=== PATIENT | female | born 1950 | race Caucasian/White ===

== ENCOUNTER 2021-02-28 07:32 | Outpatient (CLI) | payer OTHER, SELFPAY ==
--- NOTE | ~2021-02-28 | US_ITS ---
EXAMINATION: US retroperitoneal duplex ltd DATE: 02/28/2021 08:18 INDICATION: Hypertension. Atherosclerosis of renal artery. TECHNIQUE: Multiple grayscale, color Doppler, and pulsed Doppler images of the kidneys and renal vira adam were obtained. COMPARISON: CT abdomen and pelvis 12/18/2017 FINDINGS: The aorta peak systolic velocity is 70 cm/s. The right renal artery peak systolic velocity is 131 cm/ s in the proximal segment, 65 cm/s in the mid segment, and 75 cm/s in the distal segment. The left re nal artery peak systolic velocity is 128 cm/s in the proximal segment, 87 cm/s in the mid segment, an d 51 cm/s in the distal segment. The kidneys are normal in size. There is a 1.1 cm cyst in right kidn ey. IMPRESSION: 1. No Doppler evidence of renal artery stenosis. Note that the prior CT similarly shows no significa nt renal artery stenosis. Reviewed, dictated and finalized at location A. IMPRESSION: 1. No Doppler evidence of renal artery stenosis. Note that the prior CT simila rly shows no significant renal artery stenosis.
== END 2021-02-28 07:33 | disposition home or self-care (01) ==
LOC: ANHIMG 07:36
PROVIDERS: PCP Internal Medicine; Visit Provider Nurse Practitioner
DX: I70.1 Atherosclerosis of renal artery (principal)
CPT/HCPCS: 93976

== ENCOUNTER 2021-12-13 13:38 | Outpatient (CLI) | payer OTHER, SELFPAY ==
--- NOTE | ~2021-12-13 | XR_ITS ---
XR hip LT min 2V DATE: 12/13/2021 14:13 INDICATION: Left hip pain, worsening. No injury. TECHNIQUE: AP and lateral views COMPARISON: 12/18/2017 CT abdomen pelvis FINDINGS: There is mild left hip osteoarthritis. No fracture or dislocation, avascular necrosis or joshua ne destruction is detected. The pubic symphysis and sacroiliac joints are intact. IMPRESSION: Mild left hip osteoarthritis Reviewed, dictated and finalized at location A.
--- NOTE | ~2021-12-13 | XR_ITS ---
XR shoulder RT min 2V DATE: 12/13/2021 14:13 INDICATION: Right shoulder pain, worsening. No injury. TECHNIQUE: 4 views COMPARISON: None FINDINGS: There is mild degenerative change at the right acromioclavicular joint. There is mild glenohumeral osteoarthritis. There is some calcification of the rotator cuff tendon near its insertion at the greater tuberosity. No fracture or dislocation, periosteal reaction or bone destruction of the right shoulder is noted. Degenerative change of the thoracic and cervical spine. IMPRESSION: Rotator cuff calcific tendinitis Mild degenerative change at the right acromioclavicular and glenohumeral joints Reviewed, dictated and finalized at location A.
== END 2021-12-13 13:39 | disposition home or self-care (01) ==
LOC: ANHIMG 13:48
PROVIDERS: PCP Internal Medicine; Visit Provider Nurse Practitioner
DX: M25.552 Pain in left hip (principal); M25.511 Pain in right shoulder; M16.12 Unilateral primary osteoarthritis, left hip; M65.811 Other synovitis and tenosynovitis, right shoulder
CPT/HCPCS: 73030; 73502

== ENCOUNTER 2022-02-18 15:54 | Outpatient (CLI) | payer OTHER, SELFPAY ==
--- NOTE | ~2022-02-18 | MM_ITS ---
EXAMINATION: MM screening arun BI w cailin HISTORY: Screening TECHNIQUE: Craniocaudal and mediolateral oblique 3-D tomosynthesis images were obtained and synthetic 2-D images were generated. CAD analysis was submitted and interpreted. COMPARISON: Comparison to multiple prior studies sequentially, with oldest reviewed study dated 03/07. BREAST PARENCHYMAL COMPOSITION: The breasts are heterogenously dense, which may obscure small masses FINDINGS: There is no evidence of suspicious mass, calcification, or architectural distortion to sugg est malignancy in either breast. There has been no suspicious interval change. IMPRESSION: 1. No mammographic evidence of malignancy. 2. Recommend routine screening mammography in one year. BI-RADS Category 1: Negative Reviewed, dictated and finalized at location A.
== END 2022-02-18 15:55 | disposition home or self-care (01) ==
PROVIDERS: PCP Internal Medicine; Visit Provider Nurse Practitioner
DX: Z12.31 Encounter for screening mammogram for malignant neoplasm of breast (principal)
CPT/HCPCS: 77063; 77067

== ENCOUNTER 2023-03-27 14:35 | Emergency (ER) | payer OTHER, SELFPAY ==
[2023-03-27 14:56] VITALS: BP 129/71; PULSE 75; RESP 18; TEMP 36.7; O2SAT 97
--- NOTE | 2023-03-27 15:18 | ED.GENADULT ---
HPI - General Adult General Chief complaint: Skin/Abscess/Foreign Body Stated complaint: RT Hand Wasp Sting Time Seen by Provider: 03/27/23 15:18 Source: patient, RN notes reviewed and old records reviewed Mode of arrival: ambulatory Limitations: no limitations History of Present Illness HPI narrative: 73-year-old female presents to the [facility] with complaints of being stung by a wasp to the right hand last night. Swelling is noted. No erythema. Has taken loratadine 1 time last night, applied transit along cream. Reports that it is swollen, itching. Related Data Home Medications Medication Instructions Recorded Confirmed carvedilol 25 mg tablet 12.5 mg PO Q12H 02/05/21 03/27/23 spironolactone 25 mg tablet 12.5 mg PO DAILY 02/05/21 03/27/23 multivitamin 1 tablet PO DAILY 08/11/22 03/27/23 atorvastatin 10 mg tablet 10 mg PO DAILY 02/10/23 03/27/23 coenzyme Q10 200 mg/gram oral 200 mg PO DAILY 02/10/23 03/27/23 powder (H2Q CoQ10) lactobacillus combination no.9 4 4,000 mmu cells PO DAILY 02/10/23 03/27/23 billion cell capsule (Adult 50 Plus Probiotic) Allergies Allergy/AdvReac Type Severity Reaction Status Date / Time amlodipine AdvReac Intermediate swelling Verified 03/27/23 15:01 hydrochlorothiazide AdvReac Mild throat Verified 03/27/23 15:01 irritation lisinopril AdvReac Mild throat Verified 03/27/23 15:01 irritation Review of Systems Review of Systems: All systems reviewed & are unremarkable except as noted in HPI and below Constitutional: Constitutional: Reports no additional constitutional complaints Eyes: Eyes: Reports no additional eye complaints ENT: Reports system reviewed and no additional complaints, except as documented Cardiovascular: Cardiovascular: Reports no additional cardiovascular complaints, Denies chest pain and Denies dyspnea Respiratory: Respiratory: Reports no additional respiratory complaints, Denies chest congestion, Denies cough and Denies dyspnea Gastrointestinal: Gastrointestinal: Reports no additional gastrointestinal complaints, Denies abdominal pain, Denies nausea and Denies vomiting Musculoskeletal: Musculoskeletal: Reports as per HPI Integumentary/Breasts: Skin/Breast: Reports as per HPI Neurologic: Reports system reviewed and no additional complaints, except as documented Psychiatric: Psychiatric: Reports no additional psychiatric complaints Allergic/Immunologic: Allergic/Immunologic: Reports no additional allergic/immunologic complaints [facility] Past Medical History Medical History Arthritis History of sciatica History of stress test (~2017) Hx of colonic polyps Hypertension Postmenopause Ruptured disc, cervical (~1985) Surgical History Surgical History H/O: hysterectomy (~1976) History of eye surgery July 2020 with correction in March 2021 Family History Family History Father Family history of diabetes mellitus in first degree relative Colon polyp Patient's father is Acute myocardial infarction Hypertension Heart disease Diabetes mellitus Mother Family history of Alzheimer's disease Sibling Hypertension Other Family history of allergic disorder Family history of cardiovascular disease Social History Social History Smoking status: Never smoker Second hand tobacco smoke exposure: No Alcohol intake: never Substance use: never Substance use type: does not use Lack of Transportation: No Lack of Food: Never True Current Housing: I Have Housing Concerned About Future Housing: No Difficulty Paying Gas/Electric Bills: No Difficulty Paying for Meds: No Currently Unemployed: No Education: Associate Degree Difficulty w/ Childcare or Family Care: No Comments At the t
== END 2023-03-27 15:30 | disposition home or self-care (01) ==
PROVIDERS: Emergency Provider Nurse Practitioner; PCP Internal Medicine
DX: T63.461A Toxic effect of venom of wasps, accidental (unintentional), initial encounter (principal); M19.90 Unspecified osteoarthritis, unspecified site
CPT/HCPCS: 99213; G0463

== ENCOUNTER 2023-07-06 14:42 | Outpatient (CLI) | payer OTHER, SELFPAY ==
--- NOTE | ~2023-07-06 | XR_ITS ---
EXAMINATION: XR lumbar spine 6V w bending DATE: 07/06/2023 15:02 INDICATION: Low back pain TECHNIQUE: Anteroposterior, lateral in neutral, flexion and extension, and bilateral oblique views of the lumbar spine, and cone-down lateral view of the lumbosacral junction were obtained. COMPARISON: None. FINDINGS: There are 5 mm of anterolisthesis of L4 on L5. No hypermobility is present with flexion and extension. There is severe loss of intervertebral disc space height at L5-S1. The lumbar vertebral b ronda heights are maintained. There is no fracture. There is severe facet joint osteoarthritis from L3- 4 through L5-S1. IMPRESSION: 1. Moderate lumbar spondylosis without acute findings. Reviewed, dictated and finalized at location B. SETTER AXMINSTER
== END 2023-07-06 14:43 | disposition home or self-care (01) ==
LOC: ANHIMG 14:44
PROVIDERS: PCP Internal Medicine; Visit Provider Physician Assistant
DX: M43.06 Spondylolysis, lumbar region (principal)
CPT/HCPCS: 72114

== ENCOUNTER 2024-08-25 09:46 | Outpatient (CLI) | payer OTHER, SELFPAY ==
--- NOTE | ~2024-08-25 | US_ITS ---
US renal BI 08/25/2024 10:00 Procedure: Realtime transabdominal ultrasound of the kidneys and bladder. Indication: Chronic kidney disease stage III Comparison: Ultrasound dated 02/28/2021 Findings: Renal echotexture is normal bilaterally without hydronephrosis, contour deforming mass or r enal calculus. There are right renal cyst largest measuring 1 cm. The right kidney measures 10.2 cm a nd left kidney measures 10 cm. Bladder within normal limits. Impression: 1: Unremarkable renal ultrasound. No stones, masses or hydronephrosis. Reviewed, dictated and finalized at location B. BOARD INSTRUCTOR Impression: 1: Unremarkable renal ultrasound. No stones, masses or hydronephrosis.
== END 2024-08-25 09:47 | disposition home or self-care (01) ==
LOC: GOSHIMG 09:47
PROVIDERS: PCP Internal Medicine; Visit Provider Internal Medicine Nephrology
DX: I12.9 Hypertensive chronic kidney disease with stage 1 through stage 4 chronic kidney disease, or unspecified chronic kidney disease (principal); N18.31 Chronic kidney disease, stage 3a
CPT/HCPCS: 76775

== ENCOUNTER 2024-10-11 09:40 | Outpatient (CLI) | payer OTHER, SELFPAY ==
--- NOTE | ~2024-10-11 | XR_ITS ---
XR chest 2V Ordering provider: Jose James DO History: 74 years Female with . RT CHEST PAIN WITH DEEP INSPIRATION . Comparison: April 25, 2019 FINDINGS: MEDIASTINUM: The cardiac silhouette is not enlarged. LUNGS: No infiltrates, effusions or pneumothorax. Underlying emphysematous changes. OTHER: No free air under the diaphragm. Degenerative changes of the spine. IMPRESSION: No acute cardiopulmonary pathology. Reviewed, dictated and finalized at location A.
--- OUTSIDE RECORDS SUMMARY | 2024-10-11 11:00 | XMS_ITS | Referral Summary ---
Author Organization [facility] [place] [address] [facility] [address] Address [address] [place] [address] Care Team Providers Care Broke Handler Name Role Phone Marvin No MD Primary Care Provider [phone] Encounters Date Type Department Care Team Description 08/04/2024 Telephone [facility] Medical [facility] Cardiology [address] [place] [address] Leigha Adrian NP 08/02/2024 Telephone [facility] Medical [facility] Cardiology [address] [place] [address] Yannick Collazo MD from Last 3 Months Allergies Active Allergy Reactions Criticality Noted Date Comments Amlodipine Edema Medium 04/14/2018 Hydrochlorothiazide Other (See comments) Medium 2017 Dehydration, bleeding Lisinopril Cough Medium 04/14/2018 Medications magnesium chloride 64 mg of elemental magnesium delayed release tabletIndications :hypomagnesemia Take 2 tablets (128 mg of elemental magnesium total) by mouth daily Active vit E-F-ukeybk-zinc-l utein 226-90-0.8-5 mg capsule Take by mouth Active atorvastatin (LIPITOR) 10 mg tablet TAKE 1 TABLET BY MOUTH EVERY DAY 90 tablet 3 4 Active carvediloL (COREG) 12.5 mg tablet TAKE 1 TABLET BY MOUTH TWICE A DAY WITH FOOD 180 tablet 2 5 Active spironolactone (ALDACTONE) 25 mg tabletIndications :Essential hypertension TAKE 1/2 TABLET BY MOUTH DAILY 45 tablet 5 Active Active Problems Problem Noted Date Diagnosed Date Left ventricular hypertrophy 08/09/2020 BLACK (dyspnea on exertion) 04/14/2018 Palpitations 03/09/2015 Overview (10/24/2016): Palpitations Hyperlipidemia LDL goal <70 03/09/2015 Overview (10/24/2016): HLD (hyperlipidemia) Hypertension 03/09/2015 Overview (10/24/2016): HTN (hypertension) Social History Tobacco Use Types Packs/Day Years Used Date Smoking Tobacco: Never Smokeless Tobacco: Never Tobacco Cessation:Counseling Given: Not Answered Alcohol Use Standard Drinks/Week Comments No 0 (1 standard drink = 0.6 oz pur e alcohol) Personal Safety Answer Date Recorded Getting School Help Needed Not on file 08/24 Comments Unknown Sex and Gender Information Value Date Recorded Sex Assigned at Not on file Legal Sex Female 6:53 AM CURB SUPERVISOR Gender Identity Female 08/17/2021 5:50 PM CURB SUPERVISOR Sexual Orientation Straight 08/17/2021 5: 50 PM CURB SUPERVISOR Last Filed Vital Signs Vital Sign Reading Time Taken Comments Blood Pressure 136/74 11/17/2023 1:48 PM CDT Pulse 69 11/17/2023 10:28 AM CDT Temperature - - Respiratory Rate 16 04/14/2018 2:06 PM CDT Oxygen Saturation 97% 11/17/2023 10:28 AM CDT Inhaled Oxygen Concentration - - Weight 71.2 kg (157 lb) 11/17/2023 10:28 AM CDT Height 170.2 cm (5' 7 ) 11/17/2023 10:28 AM CDT Body Mass Index 24.59 11/17/2023 10:28 AM CDT Plan of Treatment Not on file Procedures Procedure Name Priority Date/Time Associated Diagnosis Comments BASIC METABOLIC PANEL Routine 08/09/2024 11:52 AM CURB SUPERVISOR BLACK (dyspnea on exertion) BASIC METABOLIC PANEL Routine 08/03/2024 12:16 PM CURB SUPERVISOR Essential hypertension from Last 3 Months Results * (ABNORMAL) Basic metabolic panel (08/09/2024 11:52 AM CURB SUPERVISOR) Glucose 92 70 - 99 mg/dL [facility] - 01 BUN 26 8 - 27 mg/dL [facility] - 01 Creatinine, Serum 1.09(H) 0.57 - 1.00 mg/dL [facility] - 01 eGFR 53(L) >59 mL/min/1.7 3 [facility] - 01 BUN/creat ratio 24 12 - [facility] - 01 Sodium 140 134 - 144 mmol/L [facility] - 01 Potassium, sr 5.0 3.5 - 5.2 mmol/L [facility] - 01 Chloride 100 96 - 106 mmol/L [facility] - 01 CO2 24 20 - 29 mmol/L [facility] - 01 Calcium 10.5(H) 8.7 - 10.3 mg/dL [facility] - 01 Blood 08/09/2024 11:5 2 AM CURB SUPERVISOR 08/09/2024 Narrative [facility] - 08/10/2024 7:08 AM CURB SUPERVISOR Performed at: - [facility] [id number] Machine Shop Lead Man: Collin Gee PhD, Phone: [phone] us Leigha Adrian SENIOR JAVASCRIPT ENGINEER LAB BLOOD ORDERABLES Final Resul t [facility] - * (ABNORMAL) Basic metabolic panel (08/03/2024 12:16 PM CURB SUPERVISOR) Glucose 86 70 - 99 mg/dL [facility] - 01 BUN 22 8 - 27 mg/dL [facility] - 01 Creatinine, Serum 1.24(H) 0.57 - 1.00 mg/dL [facility] - 01 eGFR 45(L) >59 mL/min/1.7 3 [facility] - 01 BUN/creat ratio 18 12 - [facility] - 01 Sodium 140 134 - 144 mmol/L [facility] - 01 Potassium, sr 4.9 3.5 - 5.2 mmol/L [facility] - 01 Chloride 104 96 - 106 mmol/L [facility] - 01 CO2 23 20 - 29 mmol/L [facility] - 01 Calcium 9.5 8.7 - 10.3 mg/dL [facility] - 01 Blood 08/03/2024 12:1 6 PM CURB SUPERVISOR 08/03/2024 Narrative [facility] - 08/04/2024 8:14 AM CURB SUPERVISOR Performed at: - [facility] [address] [id number] Machine Shop Lead Man: Collin Gee PhD, Phone: [phone] us Yannick Collazo MD LAB BLOOD ORDERABLES Amanda hernandez Result [facility] - 01 from Last [address] [facility] Care Teams Broke Handler Relationship Specialty Start Date End Date Marvin No MD [address] [place] [id number] PCP - General Internal Medicine 09/01/22
--- OUTSIDE RECORDS SUMMARY | 2024-10-11 11:00 | XMS_ITS | Clinical Summary ---
Author Organization [facility] Address [address] [place] [address] Care Team Providers Care Frame Fixer Name Role Phone Jose James DO Primary Care Provider [phone] Allergies Active Allergy Reactions Criticality Noted Date Comments Lisinopril Other (see comment) 07/10/2023 Voice loss Medications No known medications Social History Tobacco Use Types Packs/Day Years Used Date Smoking Tobacco: Never Smokeless Tobacco: Never Tobacco Cessation:Counseling Given: Not Answered Alcohol Use Standard Drinks/Week Comments Not Currently 0 (1 standard drink = 0.6 oz pur e alcohol) Comments Unknown Sex and Gender Information Value Date Recorded Sex Assigned at Not on file Legal Sex Female 8:01 PM CDT Gender Identity Not on file Sexual Orientation Not on file Last Filed Vital Signs Vital Sign Reading Time Taken Comments Blood Pressure 174/93 07/10/2023 1:00 PM LEMON GROWER Pulse 74 07/10/2023 1:00 PM LEMON GROWER Temperature 36.4 C (97.6 F) 07/10/2023 1:00 PM LEMON GROWER Respiratory Rate 18 07/10/2023 1:00 PM LEMON GROWER Oxygen Saturation 95% 07/10/2023 1:00 PM LEMON GROWER Inhaled Oxygen Concentration - - Weight 71.9 kg (158 lb 8.2 oz) 07/10/2023 11:53 AM LEMON GROWER Height 170.2 cm (5' 7 ) 07/10/2023 11:53 AM LEMON GROWER Body Mass Index 24.83 07/10/2023 11:53 AM LEMON GROWER Plan of Treatment Health Maintenance Due Date Last Done Comments Hepatitis C 1966 DTaP, Tdap and Td Vaccines (1 - Tdap) 1969 Annual Medicare Wellness Visit 2013 Dexa Scan (General) 2013 Zoster Vaccines (2 of 3) 10/13/2016 08/18/2016 Pneumococcal Vaccine: 65+ Years (2 of 2 - PPSV23 or PCV20) 06/17/2017 06/17/2016 RSV Immunization or 60+ Years (1 - 1-dose 75+ series) 2023 COVID-19 Vaccine ( - season) 2024 03/29/2022, 10/17/2021, 04/13/2021, Additional history exists Influenza Adult (#1) 2024 05/26/2019, 04/28/2018, 06/17/2016 Meningococcal B Vaccine Aged Out No l onger eligible based on patient's age to complete this topic Meningococcal Vaccine Aged Out No adam tre eligible based on patient's age to complete this topic RSV Immunizations Under 20 Months Aged Out No longer eligible based on patient's age to complete this topic Insurance Care Teams Frame Fixer Relationship Specialty Start Date End Date Jose James DO [address] [address] PCP - General INTERNAL MEDICINE 05/12/22
--- OUTSIDE RECORDS SUMMARY | 2024-10-11 11:00 | XMS_ITS | Clinical Summary ---
Author Organization [facility] [place] [address] Address [address] [place] [address] Care Team Providers Care Stone Setter Apprentice Name Role Phone Marvin No MD Primary Care Provider [phone] Allergies Active Allergy Reactions Criticality Noted Date Comments Amlodipine Edema Medium 04/14/2018 Hydrochlorothiazide Other (See comments) Medium 2017 Dehydration, bleeding Lisinopril Cough Medium 04/14/2018 Medications magnesium chloride 64 mg of elemental magnesium delayed release tabletIndications :hypomagnesemia Take 2 tablets (128 mg of elemental magnesium total) by mouth daily Active vit H-K-harubw-zinc-l utein 226-90-0.8-5 mg capsule Take by mouth [...] (hyperlipidemia) Hypertension 03/09/2015 Overview (10/24/2016): HTN (hypertension) Encounters Date Type Department Care Team Description 08/04/2024 Telephone [facility] Cardiology [address] [place] [address] Leigha Adrian NP 08/02/2024 Telephone [facility] Medical [facility] Cardiology [address] [place] [address] Yannick Collazo MD from Last 3 Months Surgical History Surgery Date Site/Laterality Comments HYSTERECTOMY Medical History Medical History Date Comments Hypertension Hyperlipidemia Family History Medical History Relation Name Comments Coronary artery disease Father Kristin nary artery disease; Heart attack Father Myocardial infa rction; Hypertension Father Hypertension; Alzheimer's disease Mother Alzheime r's disease; Hypertension Sister Hypertension; Relation Name Status Comments Father (Age 84) Mother Sister Social History Tobacco Use Types Packs/Day Years [...] on file Legal Sex Female 6:53 AM PRODUCT TECHNICIAN Gender Identity Female 08/17/2021 5:50 PM PRODUCT TECHNICIAN Sexual Orientation Straight 08/17/2021 5: 50 PM PRODUCT TECHNICIAN Obstetrics History Last Filed Vital Signs Vital Sign Reading [...] 11/17/2023 10:28 AM CDT Plan of Treatment Health Maintenance Due Date Last Done Comments Depression Screening 1948 Fall Risk Assessment 1950 Hepatitis C Screening 1950 Osteoporosis Screening-Bone Density Scan 1948 DTaP/Tdap/Td Vaccine (1 - Tdap) 1959 Hepatitis B Screening 1966 Well Visit 65+ 2013 Zoster Vaccine (2 of 3) 10/13/2016 08/18/2016 Pneumococcal vaccine 65+ (2 of 2 - PPSV23) 06/17/2017 06/17/2016 Influenza Vaccine Completed 04/21/2024, , 04/28/2018, Additional history exists Procedures Procedure Name Priority Date/Time Associated Diagnosis Comments BASIC METABOLIC PANEL Routine 08/09/2024 11:52 AM PRODUCT TECHNICIAN BLACK (dyspnea on exertion) BASIC METABOLIC PANEL Routine 08/03/2024 12:16 PM PRODUCT TECHNICIAN Essential hypertension from Last 3 Months Results * (ABNORMAL) Basic metabolic panel (08/09/2024 11:52 AM PRODUCT TECHNICIAN) Glucose 92 70 - 99 mg/dL [facility] - 01 BUN 26 8 - 27 mg/dL [facility] - 01 Creatinine, Serum 1.09(H) 0.57 - 1.00 mg/dL [facility] - 01 eGFR 53(L) >59 mL/min/1.7 3 [facility] - 01 BUN/creat ratio 24 12 - 28 [facility] - 01 Sodium 140 134 - 144 mmol/L [facility] - 01 Potassium, sr 5.0 3.5 - 5.2 mmol/L [facility] - 01 Chloride 100 96 - 106 mmol/L [facility] - 01 CO2 24 20 - 29 mmol/L [facility] - 01 Calcium 10.5(H) 8.7 - 10.3 mg/dL [facility] - 01 Blood 08/09/2024 11:5 2 AM PRODUCT TECHNICIAN 08/09/2024 Narrative [facility] - 08/10/2024 7:08 AM PRODUCT TECHNICIAN Performed at: 01 - [facility] [id number] Systems Auditor: Collin Gee PhD, Phone: [phone] us Leigha Adrian MINERALOGY PROFESSOR LAB BLOOD ORDERABLES Final Resul t [facility] - 01 * (ABNORMAL) Basic metabolic panel (08/03/2024 12:16 PM PRODUCT TECHNICIAN) Glucose 86 70 - 99 mg/dL [facility] - 01 BUN 22 8 - 27 mg/dL [facility] - 01 Creatinine, Serum 1.24(H) 0.57 - 1.00 mg/dL [facility] - 01 eGFR 45(L) >59 mL/min/1.7 3 [facility] - 01 BUN/creat ratio 18 12 - 28 [facility] - 01 Sodium 140 134 - 144 mmol/L [facility] - 01 Potassium, sr 4.9 3.5 - 5.2 mmol/L [facility] - 01 Chloride 104 96 - 106 mmol/L [facility] - 01 CO2 23 20 - 29 mmol/L [facility] - 01 Calcium 9.5 8.7 - 10.3 mg/dL [facility] - 01 Blood 08/03/2024 12:1 6 PM PRODUCT TECHNICIAN 08/03/2024 Narrative [facility] - 08/04/2024 8:14 AM PRODUCT TECHNICIAN Performed at: 01 - [place] [address] Systems Auditor: Collin Gee PhD, Phone: [phone] Yannick Collazo MD LAB BLOOD ORDERABLES Amanda l Result [facility] - 01 from Last 3 Months Insurance [facility] Care Teams Stone Setter Apprentice Relationship Specialty Start Date End Date Marvin No MD [address] [facility] [address] [place] [address] PCP - General Internal Medicine 09/01/22
== END 2024-10-11 09:41 | disposition home or self-care (01) ==
PROVIDERS: PCP Internal Medicine; Visit Provider Internal Medicine
DX: R07.9 Chest pain, unspecified (principal)
CPT/HCPCS: 71046

== ENCOUNTER 2024-10-13 12:34 | Inpatient (IN) | payer OTHER, SELFPAY ==
--- NOTE | ~2024-10-13 | XR_ITS ---
XR chest 1V 10/13/2024 15:34 Indication: Right-sided chest pain Procedure: PA chest Comparison: Comparison to multiple prior studies sequentially, with oldest reviewed study dated 01/2019. Findings: Small right pleural effusion. Heart size normal. Left lung clear. No acute osseous abnormal ity. Impression: 1: Small right pleural effusion. Reviewed, dictated and finalized at location A. Impression: 1: Small right pleural effusion.
--- NOTE | ~2024-10-13 | CT_ITS ---
EXAMINATION: CTA chest PE abdomen pel DATE: 10/13/2024 15:30 INDICATION: Lower right thoracic and right upper quadrant abdominal pain. TECHNIQUE: Computed tomography (CT) pulmonary angiogram of the chest was performed with 100 mL Omnipa que-350 intravenous contrast. Additional 3D reconstructions utilizing coronal maximum intensity proje ction (MIP) were performed. CT of the abdomen and pelvis was performed with intravenous contrast util izing the same contrast bolus following a short delay. Automated exposure control and iterative recon struction technique were employed. The dose-length product was 494.06 mGy-cm. COMPARISON: CT abdomen dated 12/18/2017 FINDINGS: Chest: There are central pulmonary arterial filling defects in the apical segmental and posterior segmental pulmonary arteries of the right upper lobe, the latter appears occlusive. There is peripheral consoli dation groundglass opacity in the posterior segment of the right upper lobe which suggests secondary pulmonary infarct. Additional nonocclusive pulmonary arterial filling defect in the posterior segment al pulmonary artery of the right lower lobe. Small posterior layering right pleural effusion. Borderl ine heart size. No evident leftward bowing of the ventricular septum to suggest right heart strain. S mall amount of atherosclerotic coronary artery calcification. No pericardial effusion. Vascular is no rmal in caliber with no dissection. No pathologically enlarged thoracic lymphadenopathy. Mild to mode rate thoracic spondylosis with bridging osteophytes at multiple levels consistent with diffuse idiopa thic skeletal hyperostosis (DISH). Abdomen/pelvis: Liver, gallbladder, pancreas and bilateral adrenal glands are normal. Splenic calcifications consiste nt with old granulomatous disease. Bilateral low-attenuation renal cysts measuring up to 1.4 cm the r ight kidney. There are few sigmoid diverticula without adjacent from trace stranding to suggest diver ticulitis. Small bowel and appendix are normal. Bladder is normal. The uterus is not identified and h as likely been surgically resected. No free intraperitoneal gas or fluid. Severe spondylosis at the l umbosacral junction. IMPRESSION: 1. Pulmonary emboli in the right upper and lower lobes with associated pulmonary infarct in the poste rior segment of the right upper lobe. Dr. Hayden discussed these findings with Dr. Basurto at 3:50 PM. 2. No acute intra-abdominal/pelvic process. Reviewed, dictated and finalized at location B. IMPRESSION: 1. Pulmonary emboli in the right upper and lower lobes with associated pulmonar y infarct in the posterior segment of the right upper lobe. Dr. Hayden discus sed these findings with Dr. Basurto at 3:50 PM. 2. No acute intra-abdominal/pelvic process.
--- NOTE | ~2024-10-13 | US_ITS ---
EXAMINATION:US venous doppler LE BI INDICATION:Left lower extremity pain TECHNIQUE: Multiple grayscale, color flow and Doppler images of the right and left lower extremity de ep venous systems were obtained and reviewed. COMPARISON:No prior studies for comparison. FINDINGS: The common femoral, superficial femoral and popliteal veins demonstrate normal respiratory variation, augmentation and compressibility. Color flow is also seen within the posterior tibial, pe roneal, greater saphenous and profunda veins. IMPRESSION: 1: No lower extremity deep venous thrombosis. Reviewed, dictated and finalized at location A.
[2024-10-13 13:10] VITALS: BP 145/85; PULSE 80; RESP 18; TEMP 36.9; O2SAT 100
--- OUTSIDE RECORDS SUMMARY | 2024-10-13 13:17 | XMS_ITS | Clinical Summary ---
Author Organization [facility] [place] [address] Address [address] [place] [address] Care Team Providers Care Web Software Engineer Name Role Phone Marvin No MD Primary Care Provider [phone]- [phone] Allergies Active Allergy Reactions Criticality Noted Date Comments Amlodipine Edema Medium 04/14/2018 Hydrochlorothiazide Other (See comments) Medium 2017 Dehydration, bleeding Lisinopril Cough Medium 04/14/2018 Medications magnesium chloride 64 mg of elemental magnesium delayed release tabletIndications :hypomagnesemia Take 2 tablets (128 mg of elemental magnesium total) by mouth daily Active vit T-D-huqosm-zinc-l utein 226-90-0.8-5 mg capsule Take by mouth [...] Type Department Care Team Description 08/04/2024 Telephone [facility] Cardiology [address] [place] [address] Leigha Adrian NP 08/02/2024 Telephone [facility] Cardiology [address] [place] [address] Yannick Collazo MD from Last [...] on file Legal Sex Female 6:53 AM CAUL PULLER Gender Identity Female 08/17/2021 5:50 PM CAUL PULLER Sexual Orientation Straight 08/17/2021 5: 50 PM CAUL PULLER Obstetrics History Last Filed Vital Signs Vital [...] BASIC METABOLIC PANEL Routine 08/09/2024 11:52 AM CAUL PULLER BLACK (dyspnea on exertion) BASIC METABOLIC PANEL Routine 08/03/2024 12:16 PM CAUL PULLER Essential hypertension from Last 3 Months Results * (ABNORMAL) Basic metabolic panel (08/09/2024 11:52 AM CAUL PULLER) Glucose 92 70 - 99 mg/dL [facility] [...] - 01 Blood 08/09/2024 11:5 2 AM CAUL PULLER 08/09/2024 Narrative [facility] - 08/10/2024 7:08 AM CAUL PULLER Performed at: 01 - [facility] [id number] Canine Service Instructor Trainer: Collin Gee PhD, Phone: [phone] us Leigha Adrian [employer] LAB BLOOD ORDERABLES Final Resul t [facility] - 01 * (ABNORMAL) Basic metabolic panel (08/03/2024 12:16 PM CAUL PULLER) Glucose 86 70 - 99 mg/dL [facility] [...] - 01 Blood 08/03/2024 12:1 6 PM CAUL PULLER 08/03/2024 Narrative [facility] - 08/04/2024 8:14 AM CAUL PULLER Performed at: 01 - [place] [address] Canine Service Instructor Trainer: Collin Gee PhD, Phone: [phone] Yannick Collazo MD LAB BLOOD ORDERABLES Amanda l Result [facility] - 01 from Last 3 Months Insurance [facility] Care Teams Web Software Engineer Relationship Specialty Start Date End Date Marvin No MD [address] [facility] [address] [place] [address] PCP - General Internal Medicine 09/01/22
--- OUTSIDE RECORDS SUMMARY | 2024-10-13 13:18 | XMS_ITS | Clinical Summary ---
Author Organization [facility] Address [address] [place] [address] Care Team Providers Care Helicopter Officer Name Role Phone Jose James DO Primary Care Provider [phone] Allergies Active Allergy Reactions Criticality Noted Date [...] Comments Blood Pressure 174/93 07/10/2023 1:00 PM OPTIMIZATION ANALYST Pulse 74 07/10/2023 1:00 PM OPTIMIZATION ANALYST Temperature 36.4 C (97.6 F) 07/10/2023 1:00 PM OPTIMIZATION ANALYST Respiratory Rate 18 07/10/2023 1:00 PM OPTIMIZATION ANALYST Oxygen Saturation 95% 07/10/2023 1:00 PM OPTIMIZATION ANALYST Inhaled Oxygen Concentration - - Weight 71.9 kg (158 lb 8.2 oz) 07/10/2023 11:53 AM OPTIMIZATION ANALYST Height 170.2 cm (5' 7 ) 07/10/2023 11:53 AM OPTIMIZATION ANALYST Body Mass Index 24.83 07/10/2023 11:53 AM OPTIMIZATION ANALYST Plan of Treatment Health Maintenance Due Date [...] to complete this topic Insurance Care Teams Helicopter Officer Relationship Specialty Start Date End Date Jose James DO [address] [address] PCP - General INTERNAL MEDICINE 05/12/22
--- OUTSIDE RECORDS SUMMARY | 2024-10-13 13:18 | XMS_ITS | Referral Summary ---
Author Organization [facility] [place] [address] [facility] [address] Address [address] [place] [address] Care Team Providers Care City Dispatcher Name Role Phone Marvin No MD Primary Care Provider [phone] Encounters Date Type Department Care Team Description 08/04/2024 Telephone [facility] Medical Group Cardiology [address] [place] [address] Leigha Adrian NP 08/02/2024 Telephone [facility] Medical [facility] Cardiology [address] [place] [address] Yannick Collazo MD from Last 3 Months Allergies Active Allergy Reactions Criticality Noted Date Comments Amlodipine Edema Medium 04/14/2018 Hydrochlorothiazide Other (See comments) Medium 2017 Dehydration, bleeding Lisinopril Cough Medium 04/14/2018 Medications magnesium chloride 64 mg of elemental magnesium delayed release tabletIndications :hypomagnesemia Take 2 tablets (128 mg of elemental magnesium total) by mouth daily Active vit T-C-yhbyqx-zinc-l utein 226-90-0.8-5 mg capsule Take by mouth [...] on file Legal Sex Female 6:53 AM SQL ENGINEER Gender Identity Female 08/17/2021 5:50 PM SQL ENGINEER Sexual Orientation Straight 08/17/2021 5: 50 PM SQL ENGINEER Last Filed Vital Signs Vital Sign Reading [...] BASIC METABOLIC PANEL Routine 08/09/2024 11:52 AM SQL ENGINEER BLACK (dyspnea on exertion) BASIC METABOLIC PANEL Routine 08/03/2024 12:16 PM SQL ENGINEER Essential hypertension from Last 3 Months Results * (ABNORMAL) Basic metabolic panel (08/09/2024 11:52 AM SQL ENGINEER) Glucose 92 70 - 99 mg/dL [facility] [...] - 01 Blood 08/09/2024 11:5 2 AM SQL ENGINEER 08/09/2024 Narrative [facility] - 08/10/2024 7:08 AM SQL ENGINEER Performed at: - [facility] [id number] Front Office Coordinator: Collin Gee PhD, Phone: [phone] us Leigha Adrian LOAN WORKOUT OFFICER LAB BLOOD ORDERABLES Final Resul t [facility] - * (ABNORMAL) Basic metabolic panel (08/03/2024 12:16 PM SQL ENGINEER) Glucose 86 70 - 99 mg/dL [facility] [...] - 01 Blood 08/03/2024 12:1 6 PM SQL ENGINEER 08/03/2024 Narrative [facility] - 08/04/2024 8:14 AM SQL ENGINEER Performed at: - [facility] [address] [id number] Front Office Coordinator: Collin Gee PhD, Phone: [phone] us Yannick Collazo MD LAB BLOOD ORDERABLES Amanda henrandez Result [facility] - 01 from Last 3 Months Insurance [facility] Care Teams City Dispatcher Relationship Specialty Start Date End Date Marvin No MD [address] [place] [address] PCP - General Internal Medicine 09/01/22
[2024-10-13 13:58] VITALS: RESP 18; O2SAT 100
--- NOTE | 2024-10-13 13:58 | ECG_ITS ---
Test Date: 2024-10-13 15:21:59 Measurements Intervals [place] Rate: 74 P: 65 CA: 194 QRS: 22 QRSD: 109 T: 76 QT: 366 QTc: 408 Interpretive Statements SINUS RHYTHM POSSIBLE LEFT ATRIAL ENLARGEMENT [-0.1mV P-WAVE IN V1/V2] POSSIBLE ANTERIOR MYOCARDIAL INFARCTION , OF INDETERMINATE AGE [30 ms Q WAVE IN V3/V4, OR R < 0.2 mV IN V4] No previous ECG available for comparison Electronically Signed On 10-14-2024 10:37:03 CDT by Mary Stoner M.D.
[2024-10-13 14:39] LABS: Add Urine Microscopic? NO; Appearance Urine Clear (Clear); Bilirubin Urine Negative (Negative); Blood Urine Negative (Negative); Color Urine Yellow (Yellow); Glucose Urine UA Negative (Negative); Ketones Urine Negative (Negative); Leukocyte Esterase Ur Negative LEU/UL (Negative); Nitrate Urine Negative (Negative); Protein Urine Negative (Negative); Specific Grav Ur 1.022 (1.001-1.035); Urobilinogen Urine 0.2 mg/dL (<2.0); pH Urine 5.5 (5.0-9.0)
[2024-10-13 14:46] LABS: Lactic Acid Reflex 1.5 mmol/L (0.7-2.0)
[2024-10-13 14:47] LABS: Alanine Aminotransferase 27 U/L (6-35); Alkaline Phosphatase 77 U/L (38-126); Anion Gap 12 mmol/L (4-12); Aspartate Amino Transferase 31 U/L (14-36); Bilirubin,Total 0.5 mg/dL (0.2-1.3); Blood Urea Nitrogen 26 mg/dL (7-17); Calcium 10.4 mg/dL (8.4-10.2); Carbon Dioxide 28 mmol/L (22-30); Chloride 98 mmol/L (98-107); Estimated CRCL calculation 35 ml/min; Estimated Glomerular Filt Rate 44; Glucose 140 mg/dL (65-110); Lipase 66 U/L (23-300); Potassium 4.7 mmol/L (3.4-5.0); Sodium 138 mmol/L (137-145)
--- OUTSIDE RECORDS SUMMARY | 2024-10-13 14:54 | XMS_ITS | Clinical Summary ---
Author Organization [facility] [place] [address] Address [address] [place] [address] Care Team Providers Care Cemetery Laborer Name Role Phone Marvin No MD Primary Care Provider [phone] Allergies Active Allergy Reactions Criticality Noted Date Comments Amlodipine Edema Medium 04/14/2018 Hydrochlorothiazide Other (See comments) Medium 2017 Dehydration, bleeding Lisinopril Cough Medium 04/14/2018 Medications magnesium chloride 64 mg of elemental magnesium delayed release tabletIndications :hypomagnesemia Take 2 tablets (128 mg of elemental magnesium total) by mouth daily Active vit O-W-eizvep-zinc-l utein 226-90-0.8-5 mg capsule Take by mouth [...] Type Department Care Team Description 08/04/2024 Telephone [facility] Medical Group Cardiology [address] [place] [address] Leigha Adrian NP 08/02/2024 Telephone [facility] Medical Group Cardiology [address] [place] [address] Yannick Collazo MD from Last [...] on file Legal Sex Female 6:53 AM SPRAY BLENDER Gender Identity Female 08/17/2021 5:50 PM SPRAY BLENDER Sexual Orientation Straight 08/17/2021 5: 50 PM SPRAY BLENDER Obstetrics History Last Filed Vital Signs Vital [...] BASIC METABOLIC PANEL Routine 08/09/2024 11:52 AM SPRAY BLENDER BLACK (dyspnea on exertion) BASIC METABOLIC PANEL Routine 08/03/2024 12:16 PM SPRAY BLENDER Essential hypertension from Last 3 Months Results * (ABNORMAL) Basic metabolic panel (08/09/2024 11:52 AM SPRAY BLENDER) Glucose 92 70 - 99 mg/dL [facility] [...] - 01 Blood 08/09/2024 11:5 2 AM SPRAY BLENDER 08/09/2024 Narrative [facility] - 08/10/2024 7:08 AM SPRAY BLENDER Performed at: 01 - [facility] [id number] Assembly Stock Supervisor: Collin Gee PhD, Phone: [phone] us Leigha Adrian CLINICAL DATA ANALYST LAB BLOOD ORDERABLES Final Resul t [facility] - 01 * (ABNORMAL) Basic metabolic panel (08/03/2024 12:16 PM SPRAY BLENDER) Glucose 86 70 - 99 mg/dL [facility] [...] - 01 Blood 08/03/2024 12:1 6 PM SPRAY BLENDER 08/03/2024 Narrative [facility] - 08/04/2024 8:14 AM SPRAY BLENDER Performed at: 01 - [place] [address] Assembly Stock Supervisor: Collin Gee PhD, Phone: [phone] Yannick Collazo MD LAB BLOOD ORDERABLES Amanda l Result [facility] - 01 from Last 3 Months Insurance [facility] Care Teams Cemetery Laborer Relationship Specialty Start Date End Date Marvin No MD [address] [facility] [address] [place] [address] PCP - General Internal Medicine 09/01/22
--- OUTSIDE RECORDS SUMMARY | 2024-10-13 14:54 | XMS_ITS | Clinical Summary ---
Author Organization [facility] Address [address] [place] [address] Care Team Providers Care Meteorology Instructor Name Role Phone Jose James DO Primary Care Provider [phone] Allergies Active Allergy Reactions Criticality Noted Date [...] Comments Blood Pressure 174/93 07/10/2023 1:00 PM STRATEGIC PLANNER Pulse 74 07/10/2023 1:00 PM STRATEGIC PLANNER Temperature 36.4 C (97.6 F) 07/10/2023 1:00 PM STRATEGIC PLANNER Respiratory Rate 18 07/10/2023 1:00 PM STRATEGIC PLANNER Oxygen Saturation 95% 07/10/2023 1:00 PM STRATEGIC PLANNER Inhaled Oxygen Concentration - - Weight 71.9 kg (158 lb 8.2 oz) 07/10/2023 11:53 AM STRATEGIC PLANNER Height 170.2 cm (5' 7 ) 07/10/2023 11:53 AM STRATEGIC PLANNER Body Mass Index 24.83 07/10/2023 11:53 AM STRATEGIC PLANNER Plan of Treatment Health Maintenance Due Date [...] to complete this topic Insurance Care Teams Meteorology Instructor Relationship Specialty Start Date End Date Jose James DO [address] [address] PCP - General INTERNAL MEDICINE 05/12/22
--- OUTSIDE RECORDS SUMMARY | 2024-10-13 14:54 | XMS_ITS | Referral Summary ---
Author Organization [facility] [place] [facility] [address] [facility] 162 Address [address] [place] [address] Care Team Providers Care Custom Feed Mill Operator Helper Name Role Phone Marvin No MD Primary Care Provider [phone] Encounters Date Type Department Care Team Description 08/04/2024 Telephone [facility] Medical Group Cardiology [address] [place] [address] Leigha Adrian NP 08/02/2024 Telephone [facility] Medical [facility] Cardiology [address] [place] [address] Yannick Collazo MD from Last 3 Months Allergies Active Allergy Reactions Criticality Noted Date Comments Amlodipine Edema Medium 04/14/2018 Hydrochlorothiazide Other (See comments) Medium 2017 Dehydration, bleeding Lisinopril Cough Medium 04/14/2018 Medications magnesium chloride 64 mg of elemental magnesium delayed release tabletIndications :hypomagnesemia Take 2 tablets (128 mg of elemental magnesium total) by mouth daily Active vit X-O-rjqxol-zinc-l utein 226-90-0.8-5 mg capsule Take by mouth [...] on file Legal Sex Female 6:53 AM LOCKET MAKER Gender Identity Female 08/17/2021 5:50 PM LOCKET MAKER Sexual Orientation Straight 08/17/2021 5: 50 PM LOCKET MAKER Last Filed Vital Signs Vital Sign Reading [...] BASIC METABOLIC PANEL Routine 08/09/2024 11:52 AM LOCKET MAKER BLACK (dyspnea on exertion) BASIC METABOLIC PANEL Routine 08/03/2024 12:16 PM LOCKET MAKER Essential hypertension from Last 3 Months Results * (ABNORMAL) Basic metabolic panel (08/09/2024 11:52 AM LOCKET MAKER) Glucose 92 70 - 99 mg/dL [facility] [...] - 01 Blood 08/09/2024 11:5 2 AM LOCKET MAKER 08/09/2024 Narrative [facility] - 08/10/2024 7:08 AM LOCKET MAKER Performed at: - [facility] [id number] Mri Technologist: Collin Gee PhD, Phone: [phone] us Leigha Adrian TRAVEL COUNSELOR LAB BLOOD ORDERABLES Final Resul t [facility] - * (ABNORMAL) Basic metabolic panel (08/03/2024 12:16 PM LOCKET MAKER) Glucose 86 70 - 99 mg/dL [facility] [...] - 01 Blood 08/03/2024 12:1 6 PM LOCKET MAKER 08/03/2024 Narrative [facility] - 08/04/2024 8:14 AM LOCKET MAKER Performed at: - [facility] [address] [id number] Mri Technologist: Collin Gee PhD, Phone: [phone] us Yannick Collazo MD LAB BLOOD ORDERABLES Amanda hernandez Result [facility] - 01 from Last 3 Months Insurance [facility] Care Teams Custom Feed Mill Operator Helper Relationship Specialty Start Date End Date Marvin No MD [address] [place] [address] PCP - General Internal Medicine 09/01/22
[2024-10-13 14:59] LABS: Troponin I < 0.012 ng/mL (0.000-0.034)
[2024-10-13 15:04] LABS: Basophils Percent Auto 0.4 % (0.2-1.2); Eosinophils Absolute Auto 0.1 K/mm3 (0-0.3); Eosinophils Percent Auto 1.1 % (0-4.4); Hematocrit 42.6 % (37.0-47.0); Immature Granulocyte Absolute 0.02 K/mm3 (0.00-0.031); Immature Granulocyte Percent A 0.2 % (0-0.5); Lymphocytes Absolute Auto 1.35 K/mm3 (0.9-3.2); Lymphocytes Percent Auto 15.2 % (18.3-44.2); Mean Corpuscular HGB Conc 32.9 g/dl (32-36); Mean Corpuscular Hemoglobin 29.5 pg (26-34); Mean Corpuscular Volume 89.7 fl (80-100); Mean Platelet Volume 9.8 fl (7.4-10.4); Monocytes Absolute Auto 0.9 K/mm3 (0.1-0.6); Monocytes Percent Auto 9.9 % (2.6-8.5); Neutrophils Absolute Auto 6.5 K/mm3 (1.3-6.7); Neutrophils Percent Auto 73.2 % (45.5-73.1); Platelet Count Result 214 k/mm3 (150-375); Red Blood Count 4.75 M/mm3 (4.2-5.4); Red Cell Distribution Width 12.3 % (11.5-14.5); White Blood Count 8.9 K/mm3 (4.5-10.0)
[2024-10-13 15:14] LABS: Prothrombin Time 13.6 Seconds (11.1-14.7)
[2024-10-13 15:15] LABS: Partial Thromboplastin Time 29.2 Seconds (22.3-36.8)
--- NOTE | 2024-10-13 15:25 | PC.NURSE ---
pt to CT will start IV fluids as soon as pt returns to room. Pt needed IV and it took a couple attempts.
[2024-10-13] MEDS: SODIUM CHLORIDE 0.9% IV 2,000 ML 999 ML IV CONT (15:54)
[2024-10-13] MEDS: APIXABAN 5 MG TABLET 10 MG PO (16:23)
--- NOTE | 2024-10-13 16:26 | ED.GENADULT ---
HPI - General Adult General Chief complaint: Unspecified Stated complaint: right rib pain Time Seen by Provider: 10/13/24 13:23 History of Present Illness HPI narrative: This is a 74-year-old female presenting with right-sided chest pain x3 days.. Patient has been having a sharp pain in the right side of her chest that radiates to her back. She also has an achy pain throughout her back. Pain is worse with deep breaths and movement. She feels winded. She denies lower extremity edema, fevers productive cough, history of blood clots/DVT. She did recently travel from [place] and the drive to them over 3 days. Related Data Home Medications ?Medication ?Instructions ?Recorded ?Confirmed ?Last Taken ?Type carvedilol 25 mg tablet 12.5 mg PO Q12H 02/05/21 10/07/24 Unknown History atorvastatin 10 mg tablet 10 mg PO DAILY 02/10/23 10/07/24 Unknown History coenzyme Q10 200 mg/gram oral 200 mg PO DAILY 02/10/23 10/07/24 Unknown History powder (H2Q CoQ10) acetaminophen 500 mg tablet 500 mg PO Q6H PRN 08/16/24 10/07/24 Unknown History (Tylenol Extra Strength) omega-3 fatty acids 1,000 mg 1,000 mg PO DAILY 08/16/24 10/07/24 Unknown History capsule (Super Bear-3) spironolactone 25 mg tablet 12.5 mg PO BID 08/16/24 10/07/24 Unknown History Allergies Allergy/AdvReac Type Severity Reaction Status Date / Time amlodipine AdvReac Intermediate swelling Verified 10/07/24 13:18 hydrochlorothiazide AdvReac Mild throat Verified 10/07/24 13:18 irritation lisinopril AdvReac Mild throat Verified 10/07/24 13:18 irritation PMFSH Past Medical History Medical History Hypertension Arthritis History of stress test (~2017) History of sciatica Ruptured disc, cervical (~1985) Hx of colonic polyps Postmenopause Surgical History Surgical History H/O: hysterectomy (~1976) History of eye surgery July 2020 with correction in March 2021 Family History Family History Father Family history of diabetes mellitus in first degree relative Colon polyp Patient's father is Acute myocardial infarction Hypertension Heart disease Diabetes mellitus Mother Family history of Alzheimer's disease Sibling Hypertension Other Family history of allergic disorder Family history of cardiovascular disease Social History Social History Smoking status: Never smoker Second hand tobacco smoke exposure: No Alcohol intake: never Substance use: never Substance use type: does not use Lack of Transportation: No Lack of Food: Never True Current Housing: I Have Housing Concerned About Future Housing: No Difficulty Paying Gas/Electric Bills: No Difficulty Paying for Meds: No Currently Unemployed: No Education: Associate Degree Difficulty w/ Childcare or Family Care: No Exam Narrative: APPEARANCE: No apparent distress. Head: atraumatic. EYES: EOMI, NOSE: Atraumatic NECK: Trachea midline RESPIRATORY: Tachypneic, 4-5 word dyspnea, 100% on room air CARDIOVASCULAR: RRR, swollen left calf greater than the right ABDOMINAL: Non-distended MUSCULOSKELETAl: No obvious deformities NEURO: Alert. Moving 4/4 extremities SKIN:: Warm, dry. Normal color PSYCHIATRIC: Normal affect Course Vital Signs Vital signs: Vital Signs Temperature 98.4 F 10/13/24 13:10 Pulse Rate 80 10/13/24 13:10 Respiratory Rate 18 10/13/24 13:10 Blood Pressure 145/85 H 10/13/24 13:10 Pulse Oximetry 100 10/13/24 13:10 Oxygen Delivery Room Air 10/13/24 13:10 Temperature 98.4 F 10/13/24 13:10 Pulse Rate 80 10/13/24 13:10 Respiratory Rate 18 10/13/24 13:58 Blood Pressure 145/85 H 10/13/24 13:10 Pulse Oximetry 100 10/13/24 13:58 Oxygen Delivery Room Air 10/13/24 13:10 Medical Decision Making MDM Narrative Medical decision making narrative: -Course: 74-year-old female presenting with right-sided chest pain in the setting of recent travel. CT PE showed right-sided multi segment pulmonary embolism with pulmonary infarct. Otherwise patient is hemodynamically stable. She will be started on Eliquis. Venous ultrasound ordered for stratification purposes. Patient will be placed in observation overnight. -DDX includes but is not limited to: PE, pneumonia, viral syndrome, gallbladder disease -Independent interpretation of studies: Labs imaging/reviewed -Discussion of Management/Consultants: Anat -Interventions:Terry -Shared decision making / Disposition: observation Vital Signs Vital Signs: Vital Signs Temperature 98.4 F 10/13/24 13:10 Pulse Rate 80 10/13/24 13:10 Respiratory Rate 18 10/13/24 13:10 Blood Pressure 145/85 H 10/13/24 13:10 Pulse Oximetry 100 10/13/24 13:10 Oxygen Delivery Room Air 10/13/24 13:10 Temperature 98.4 F 10/13/24 13:10 Pulse Rate 80 10/13/24 13:10 Respiratory Rate 18 10/13/24 13:58 Blood Pressure 145/85 H 10/13/24 13:10 Pulse Oximetry 100 10/13/24 13:58 Oxygen Delivery Room Air 10/13/24 13:10 Lab Data 10/13/24 14:56 10/13/24 14:29 Labs: Lab Results 10/13/24 10/13/24 10/13/24 Range/Units 14:29 14:50 14:56 WBC 8.9 (4.5-10.0) K/mm3 RBC 4.75 (4.2-5.4) M/mm3 Hgb 14.0 (12.0-15.0) g/dL Hct 42.6 (37.0-47.0) % MCV 89.7 (80-100) fl MCH 29.5 (26-34) pg MCHC 32.9 (32-36) g/dl RDW 12.3 (11.5-14.5) % Plt Count 214 (150-375) k/mm3 MPV 9.8 (7.4-10.4) fl Immature Gran % (Auto) 0.2 (0-0.5) % Neut % (Auto) 73.2 H (45.5-73.1) % Lymph % (Auto) 15.2 L (18.3-44.2) % Wallace % (Auto) 9.9 H (2.6-8.5) % Eos % (Auto) 1.1 (0-4.4) % Baso % (Auto) 0.4 (0.2-1.2) % Lymph # (Auto) 1.35 (0.9-3.2) K/mm3 Wallace # (Auto) 0.9 H (0.1-0.6) K/mm3 Eos # (Auto) 0.1 (0-0.3) K/mm3 Baso # (Auto) 0.0 (0.0-0.1) K/mm3 Abs Immat Gran (auto) 0.02 (0.00-0.031) K/mm3 Absolute Neuts (auto) 6.5 (1.3-6.7) K/mm3 Absolute Nucleated RBC 0.000 (0.0-0.012) K/mm3 Nucleated RBC % 0.0 (0.0-0.2) % PT 13.6 (11.1-14.7) Seconds INR 1.0 APTT 29.2 (22.3-36.8) Seconds Sodium 138 (137-145) mmol/L Potassium 4.7 (3.4-5.0) mmol/L Chloride 98 (98-107) mmol/L Carbon Dioxide 28 (22-30) mmol/L Anion Gap 12 (4-12) mmol/L BUN 26 H (7-17) mg/dL Creatinine 1.20 H (0.7-1.0) mg/dL Estim Creat Clear Calc 35 ml/min Estimated GFR 44 L (59 - ) Glucose 140 H (65-110) mg/dL Lactic Acid 1.5 (0.7-2.0) mmol/L Calcium 10.4 H (8.4-10.2) mg/dL Magnesium 2.0 (1.6-2.3) mg/dL Total Bilirubin 0.5 (0.2-1.3) mg/dL AST 31 (14-36) U/L ALT 27 (6-35) U/L Alkaline Phosphatase 77 (38-126) U/L Troponin I < 0.012 (0.000-0.034) ng/mL Total Protein 9.0 H (6.3-8.2) g/dL Albumin 5.0 (3.5-5.1) g/dL Lipase 66 (23-300) U/L Urine Color Yellow (Yellow) Urine Appearance Clear (Clear) Urine pH 5.5 (5.0-9.0) Ur Specific [place] 1.022 (1.001-1.035) Urine Protein Negative (Negative) mg/dL Urine Glucose (UA) Negative (Negative) mg/dL Urine Ketones Negative (Negative) mg/dL Ur Blood (Man) Negative (Negative) Urine Nitrate Negative (Negative) Urine Bilirubin Negative (Negative) Urine Urobilinogen 0.2 (<2.0) mg/dL Leukocyte Esterase Rfl Negative (Negative) FRANCISCO/UL Discharge Plan Discharge Clinical Impression: Pulmonary embolism Patient Disposition: Home, Self-Care Condition: Stable Instructions: Antibiotic Form Patient Language: Icelandic Prescriptions: No Action carvedilol 25 mg tablet 12.5 mg PO Q12H Rx Instructions: must administer with a meal/food spironolactone 25 mg tablet 12.5 mg PO BID Rx Instructions: take 1/2 of tablet daily H2Q CoQ10 200 mg/gram powder 200 mg PO DAILY atorvastatin 10 mg tablet 10 mg PO DAILY omega-3 fatty acids [Super Bear-3] 1,000 mg capsule 1,000 mg PO DAILY acetaminophen [Tylenol Extra Strength] 500 mg tablet 500 mg PO Q6H PRN cyclobenzaprine 10 mg tablet 10 mg PO TID PRN (Reason: muscle spasm) Qty: 30 0RF Rx Instructions: Do not drive or operate heavy machinery while on med Follow-up/Referrals: Jose James DO [Primary Care Provider] -
[2024-10-13 17:35] VITALS: BMI 25.1; BMI 25.7
[2024-10-13 17:52] LABS: Troponin I < 0.012 ng/mL (0.000-0.034)
--- NOTE | 2024-10-13 17:58 | ADMGEN ---
This patient, Edna Lynn, was admitted to Medical Room 343-01. Patient/family oriented to hospital policies and general routines including ID bracelet, bed and alarms, visiting hours, pain management, procedures, bathroom and other care routines, personal items, smoking policy, room service/diet, and visiting hours. Information on how to activate the Rapid Response Team has been discussed. Patient/Family are encouraged to report perceived risks to care and to ask questions if they do not understand what they are told or what they should do.
--- NOTE | 2024-10-13 18:15 | P.HP_ITS ---
H&P: HPI History of Present Illness Date/Time: 10/13/24 18:15 Chief Complaint: Chest Wall Pain Narrative: 74 y/o F with PMH of hypertension presents here with chest wall pain. The patient presents here from home for further evaluation of right-sided rib/chest wall pain and soreness. She reports onset on Thursday, 10/10. She reports the pain worsens with coughing, deep inspiration, and movement. She describes it as sharp, right-sided, with radiation into her upper back. Pain is accompanied by mild shortness of breath and a dry cough that has slightly increased lately. She denies accompanying dizziness, presyncope, syncope, hemoptysis, fever, chills, body aches, midsternal chest pain, lower extremity edema. Of note, the patient did have extended travel via car over the last 3 days. She recently traveled back from [place] on 09/20/19, travel took 2.5 days. She denies any history of DVT or pulmonary embolism. She is not on chronic anticoagulation. Initial VS at presentation: 98.4? F, HR 80, R 18, 145/85, and 100% on RA. ED workup showed: No leukocytosis, no anemia, normal coags, no significant electrolyte derangements, creatinine 1.2 and GFR 44 (at baseline), troponin negative x2, and UA unremarkable. CXR showed a small right pleural effusion. CTA chest/abdomen/pelvis showed a PE in the right upper and lower lobes with associated pulmonary infarct in the posterior segment of the right upper lobe and no acute intra-abdominal/pelvic process. Venous Dopplers of the bilateral lower extremities showed no DVT. Review of Systems Review of Systems: All systems reviewed & are unremarkable except as noted in HPI and below PMFSH Past Medical History Medical History Hyperlipidemia, unspecified Hypertension Arthritis History of sciatica Ruptured disc, cervical (~1985) Hx of colonic polyps Postmenopause Surgical History Surgical History H/O: hysterectomy (~1976) History of eye surgery July 2020 with correction in March 2021 Family History Family History Father Family history of diabetes mellitus in first degree relative Colon polyp Patient's father is Acute myocardial infarction Hypertension Heart disease Diabetes mellitus Mother Family history of Alzheimer's disease Sibling Hypertension Other Family history of allergic disorder Family history of cardiovascular disease Social History Social History Smoking status: Never smoker Second hand tobacco smoke exposure: No Alcohol intake: never Substance use: never Substance use type: does not use Do You Feel Safe in your Home?: Yes Lack of Transportation: No Lack of Food: Never True Current Housing: I Have Housing Concerned About Future Housing: No Difficulty Paying Gas/Electric Bills: No Difficulty Paying for Meds: No Currently Unemployed: No Education: Associate Degree Difficulty w/ Childcare or Family Care: No Spiritual care concerns: No Meds Home Medications and Allergies Home Medications ?Medication ?Instructions ?Recorded ?Confirmed ?Type carvedilol 25 mg tablet 12.5 mg PO Q12H 02/05/21 10/13/24 History atorvastatin 10 mg tablet 10 mg PO QHS 02/10/23 10/13/24 History acetaminophen 500 mg tablet 500 mg PO Q6H PRN fever or pain 08/16/24 10/13/24 History (Tylenol Extra Strength) spironolactone 25 mg tablet 12.5 mg PO BID 08/16/24 10/13/24 History Allergies Allergy/AdvReac Type Severity Reaction Status Date / Time amlodipine AdvReac Intermediate swelling Verified 10/13/24 18:08 hydrochlorothiazide AdvReac Mild throat Verified 10/13/24 18:08 irritation lisinopril AdvReac Mild throat Verified 10/13/24 18:08 irritation Vital Signs Vital Signs - 24 hr 10/13/24 13:10 10/13/24 13:58 Temperature 98.4 F Pulse Rate 80 Respiratory Rate 18 18 Blood Pressure 145/85 H Pulse Oximetry 100 100 Oxygen Delivery Room Air Exam Const: General: comfortable and no acute distress Other: , female, nontoxic appearance HENMT: Face/Nose/Sinus: Normal nares present Mouth: Yes moist mucous membranes Eyes: General: appearance normal, both eyes and all related structures Sclera: sclerae normal Pupils: Equal, round and reactive pupils present EOM: EOMs intact bilaterally Resp: Effort & Inspection: normal respiratory effort Auscultation: clear to auscultation bilaterally Cardio: Rate: regular rate Rhythm: regular rhythm Other: S1-S2 present without murmur, rub, ectopy Skin: General skin exam: normal color and no rashes or lesions noted Wounds: no wounds Neuro: Speech: normal speech Motor exam (neuro): 5/5 motor strength present throughout Sensory Exam: normal sensation Other: A&O x4 Extrem: General: normal to inspection Psych: Mental Status: mental status grossly normal Affect: normal affect Other: Good insight and judgment, pleasant H&P: Results Labs Labs: Short CBC 10/13/24 Range/Units 14:56 WBC 8.9 (4.5-10.0) K/mm3 Hgb 14.0 (12.0-15.0) g/dL Hct 42.6 (37.0-47.0) % Plt Count 214 (150-375) k/mm3 BMP 10/13/24 14:29 Sodium 138 Potassium 4.7 Chloride 98 Carbon Dioxide 28 BUN 26 H Creatinine 1.20 H Glucose 140 H Calcium 10.4 H Cardiac Enzymes 10/13/24 10/13/24 Range/Units 14:29 17:14 Troponin I < 0.012 < 0.012 (0.000-0.034) ng/mL Liver Function 10/13/24 Range/Units 14:29 Total Bilirubin 0.5 (0.2-1.3) mg/dL AST 31 (14-36) U/L ALT 27 (6-35) U/L Alkaline Phosphatase 77 (38-126) U/L Albumin 5.0 (3.5-5.1) g/dL Urine 10/13/24 Range/Units 14:29 Urine Color Yellow (Yellow) Urine Appearance Clear (Clear) Urine pH 5.5 (5.0-9.0) Ur Specific [place] 1.022 (1.001-1.035) Urine Protein Negative (Negative) mg/dL Urine Glucose (UA) Negative (Negative) mg/dL Assessment and Plan Assessment and plan (1) Pulmonary embolism: Qualifiers: Pulmonary embolism type: multiple subsegmental (without acute cor pulmonale) Qualified Code(s): I26.94 - Multiple subsegmental thrombotic pulmonary emboli without acute cor pulmonale Code(s): I26.99 - Other pulmonary embolism without acute cor pulmonale Status: Acute Assessment and Plan: - CXR: Small right pleural effusion. - CTA chest/abd/pelvis: 1. Pulmonary emboli in the right upper and lower lobes with associated pulmonary infarct in the posterior segment of the right upper lobe. Dr. Hayden discussed these findings with Dr. Basurto at 3:50 PM. 2. No acute intra-abdominal/pelvic process. - started on Eliquis 10 mg b.i.d., transition to 5 mg b.i.d. on 10/20 - US BLE negative for DVT - check echo with bubble - no O2 requirement Due to likelihood of pulmonary infarction on CTA, will observe inpatient for 24 hours. (2) Hypertension: Qualifiers: Hypertension type: primary hypertension Qualified Code(s): I10 - Essential (primary) hypertension Code(s): I10 - Essential (primary) hypertension Status: Chronic Assessment and Plan: - chronic, currently 145/85 - continue home medications: Carvedilol, spironolactone - monitor Plan Diet: Heart healthy GI Prophylaxis: Not indicated DVT Prophylaxis: Eliquis Lines: Peripheral Code Status: Full code Quality VTE Prophylaxis VTE prophylaxis: pharmacologic ordered Hospitalist MIPS Advance Care Plan I have confirmed that the patient's Advanced Care Plan is present, code status is documented, or surrogate decision maker is listed in patient medical record.: Yes Medication Reconciliation I have utilized all available resources to obtain, update and review the patients current medications (includes all prescriptions, OTC, herbals, cannabis, and nutritional supplements).: Yes
[2024-10-13 19:52] VITALS: BP 141/85; PULSE 85; RESP 20; TEMP 36.6; O2SAT 99
[2024-10-13 20:00] VITALS: PULSE 87
[2024-10-13 21:52] VITALS: O2SAT 99
[2024-10-13] MEDS: SPIRONOLACTONE 12.5 MG TABLET PO (21:53)
[2024-10-13 21:54] VITALS: PULSE 81
[2024-10-13] MEDS: ATORVASTATIN 10 MG TABLET PO (21:54)
[2024-10-13] MEDS: carvediloL 12.5 MG TABLET PO (21:54)
[2024-10-14] VITALS (7 sets, daily range): BP systolic 110–118; BP diastolic 65–68; PULSE 64–887; RESP 18–19; TEMP 36.3–36.5; O2SAT 93–98
--- NOTE | 2024-10-14 00:16 | ECHO_ITS ---
Patient Info Name: Edna Lynn Age: 74 years : 1950 Gender: Female Ht: 67 in Wt: 160 lbs BSA: 1.86 m2 HR: 65 bpm BP: 110 / 65 mmHg Heart Rhythm: Sinus Rhythm Technical Quality: Fair Exam Date: 10/14/2024 10:14 AM Exam Location: Echo Lab Patient Status: Inpatient Admit Date: 10/13/2024 Staff Ordering Physician: Anat Cordero APRN Spray I Painter: Madina Madrid RDCS Attending Provider: Alok Vela MD Referring Physician: Consuelo GONSALEZ; Exam Type: CA echo dop bubble study w con Study Info Indications - Pulmonary embolus Complete two-dimentional, color flow and Doppler transthoracic echocardiogram is performed with agitated saline and with contrast to opacify the left ventricle and to improve the delineation of the left ventricle endocardial borders. Contrast/Agitated Saline Contrast/Ag. Saline: Definity Amount: 2.00 ml Administered By: Madina Madrid RDCS Existing IV Access: Yes IV Access Condition: patent with no signs of infiltration Contrast/Ag. Saline: Agitated Saline Amount: --- ml Administered By: Jamila Burger RDCS Existing IV Access: Yes IV Access Condition: patent with no signs of infiltration Summary 1. Left ventricular chamber dimension is normal. 2. Left ventricular systolic function is normal, estimated at >70%. 3. There is mildly increased left ventricular wall thickness. 4. The left ventricular diastolic function is grade I diastolic dysfunction. 5. Right ventricular systolic function is normal. 6. Intact interatrial septum visualized by color flow and agitated saline imaging. Negative bubble study. 7. There is mild aortic valve regurgitation. 8. There is mild mitral valve regurgitation. Left Ventricle Left ventricular chamber dimension is normal. Left ventricular systolic function is normal, estimated at >70%. There is mildly increased left ventricular wall thickness. The left ventricular diastolic function is grade I diastolic dysfunction. Right Ventricle Right ventricular chamber dimension is normal. Right ventricular systolic function is normal. Left Atria Left atrial chamber dimension is normal. Right Atria Right atrial chamber dimension is normal. Atrial Septum Intact interatrial septum visualized by color flow and agitated saline imaging. Negative bubble study. Aortic Valve The aortic valve is trileaflet. There is no aortic valve stenosis. There is mild aortic valve regurgitation. Pulmonic Valve The pulmonic valve is not well visualized. There is trace pulmonic regurgitation. Mitral Valve There is mild mitral valve regurgitation. The mitral valve annulus is mildly calcified. Tricuspid Valve There is trace tricuspid valve regurgitation. Pericardium/Pleural There is no pericardial effusion. Inferior Vena Cava Normal inferior vena cava with >50% collapse upon inspiration consistent with normal right atrial pressure, 3 mmHg. Aorta The aortic root size at the sinus of Valsalva is normal. Left Ventricular Outflow Tract Name Value Normal LVOT 2D LVOT Diameter 2.0 cm LVOT Doppler LVOT Peak Gradient 5 mmHg LVOT Mean Gradient 3 mmHg LVOT VTI 26 cm LVOT VTI/AV VTI Ratio 0.8 LVOT Stroke Volume 79 ml LVOT CO 6.0 l/min LVOT CI 3.2 l/min/m2 Pulmonic Valve Name Value Normal RVOT Doppler RVOT Peak Gradient 2 mmHg PV Doppler PV Peak Gradient 3 mmHg Mitral Valve Name Value Normal MV Doppler MV Decel Lane 672 cm/s2 MV PHT 40 ms MV Area (PHT) 5.6 cm2 4.0-5.0 MV Diastolic Function MV E Peak Velocity 92 cm/s MV A Peak Velocity 115 cm/s MV E/A 0.8 MV Decel Time 136 ms MV Annular TDI MV E/e' (Septal) 11.2 <=8.0 Tricuspid Valve Name Value Normal TV Regurgitation Doppler TR Peak Velocity 273 cm/s TR Peak Gradient 23 mmHg Estimated PAP/RSVP RA Pressure 3 mmHg <=5 PA Systolic Pressure 33 mmHg <36 RV Systolic Pressure 33 mmHg <36 Aorta Name Value Normal Ascending Aorta Ao Root Diameter (MM) 3.5 cm Ao Root Diam Index (MM) 1.9 cm/m2 Aortic Valve Name Value Normal AV Doppler AV Peak Velocity 143 cm/s AV Peak Gradient 8 mmHg AV Mean Gradient 5 mmHg AV VTI 31 cm AV Area (Cont Eq VTI) 2.6 cm2 >=3.0 AV Area (Cont Eq Robe) 2.5 cm2 AV Regurgitation 2D LVOT Area 3.1 cm2 Ventricles Name Value Normal LV Dimensions 2D/MM IVS Diastolic Thickness (2D) 0.9 cm 0.6-1.0 LVID Diastole (2D) 4.2 cm 3.8-5.2 LVIW Diastolic Thickness (2D) 0.9 cm 0.6-0.9 LVID Systole (2D) 2.9 cm 2.2-3.5 LVOT Diameter 2.0 cm LV Mass (2D Cubed) 117.31 g 67.00-162.00 LV Mass Index (2D Cubed) 63 g/m2 43-95 Relative Wall Thickness (2D) 0.41 LV Fractional Shortening/Ejection Fraction 2D/MM LV Fractional Shortening (2D) 32 % 27-45 LV EF (2D Teicholz) 60 % 54-74 LV Diastolic Volume (4C MOD) 51 ml LV EF (4C MOD) 60 % LV Diastolic Volume (2C MOD) 52 ml LV EF (2C MOD) 65 % LV Diastolic Volume (BP MOD) 56 ml 46-106 LV Diastolic Volume Index (BP MOD) 30 ml/m2 29-61 LV Systolic Volume (BP MOD) 21 ml 14-42 LV Systolic Volume Index (BP MOD) 11 ml/m2 8-24 LV EF (BP MOD) 63 % 54-74 LV Diastolic Length (4C) 7.6 cm LV Systolic Length (4C) 6.3 cm LV Stroke Volume (4C MOD) 30 ml Atria Name Value Normal LA Dimensions LA Dimension (MM) 3.6 cm 2.7-3.8 LA Volume (4C A-L) 47 ml LA Volume (BP A-L) 52 ml RA Dimensions RA Area (4C) 13.9 cm2 <=18.0 Report Signatures
[2024-10-14] MEDS: APIXABAN 5 MG TABLET 10 MG PO (09:35)
[2024-10-14] MEDS: SPIRONOLACTONE 12.5 MG TABLET PO (09:35)
[2024-10-14] MEDS: carvediloL 12.5 MG TABLET PO (09:36)
[2024-10-14] MEDS: PERFLUTREN LIPID MICROSPHERES 1.5 ML VIAL DILUTED TO 10 ML TOTAL VOLUME IV PUSH (11:05)
--- NOTE | 2024-10-14 11:37 | IVDEFINITY ---
Prior to administration of IV Definity the patient was educated on the risks and benefits of the imaging enhancing agent including potential adverse side effects. The patient verbalized understanding. Allergies were verified. No exclusion criteria were identified and at least one of the following inclusion criteria were met: 1) physician request, 2) patient technically difficult to image (per the [place] [employer] guidelines of two or more segments not discernable within the apical view), or 3) questionable left ventricular function. ?
--- NOTE | 2024-10-14 14:23 | PM.DS ---
DS: Admitting Diagnosis Discharge Date 10/14/24 Admitting Diagnosis Chest wall pain DS: Discharge Diagnosis Discharge Diagnosis (1) Pulmonary embolism: Qualifiers: Pulmonary embolism type: multiple subsegmental (without acute cor pulmonale) Qualified Code(s): I26.94 - Multiple subsegmental thrombotic pulmonary emboli without acute cor pulmonale Code(s): I26.99 - Other pulmonary embolism without acute cor pulmonale Status: Acute (2) Pulmonary infarct: Code(s): I26.99 - Other pulmonary embolism without acute cor pulmonale Status: Acute (3) Hypertension: Qualifiers: Hypertension type: primary hypertension Qualified Code(s): I10 - Essential (primary) hypertension Code(s): I10 - Essential (primary) hypertension Status: Chronic DS: Summary Hospital Course Reason for hospitalization: 74yo female with HTN who presents with chest wall pain. Please see H&P for details. Hospital Course: In the ED, patietn was hemodynamically stable. No leukocytosis, no anemia, normal coags, no significant electrolyte derangements. Creatinine 1.2 and GFR 44 (at baseline), troponin negative x2, and UA unremarkable. EKG showing normal sinus rhythm, possible LAE and possible indeterminate aged anterior VT. CXR showed a small right pleural effusion. CTA chest/abdomen/pelvis showed a PE in the right upper and lower lobes with associated pulmonary infarct in the posterior segment of the right upper lobe and no acute intra-abdominal/pelvic process. Venous Dopplers of the bilateral lower extremities showed no DVT. She was given IV fluids and started on Eliquis. Echo showing normal systolic LV function with EF >70%, Grade I diastolic dysfunction, normal RV systolic fxn and negative bubble study. Her symptoms improved. No hemoptysis. dot compliance coordinator provided information on obtaining Eliquis. Long discussion with patient and later with family about risks of Eliquis. All questions answered. She overall did well and was able to be discharge home on 10/13/24. Status at Discharge Cognitive/behavioral status at discharge: stable Time Spent with Patient Time attestation: Total time spent providing and/or coordinating discharge services: 35 minutes Time spent: Greater than 30 minutes Exam Narrative: AF 97.7 110/65 88 18 93% ra Gen - NARD Chest - CTA bilaterally, nml RR CV - RRR S1/S2. Tele showing no acute dysrhythmias Abd - Soft, NT/ND, Positive BS Ext - No pedal edema Neuro - Alert and oriented. Nonfocal exam. Psych - Nml mood and affect Skin - Warm and dry DS: Data Data Completed and Pending Labs on day of discharge: Labs from last 24 hours 10/13/24 10/13/24 10/13/24 17:14 14:56 14:50 WBC 8.9 RBC 4.75 Hgb 14.0 Hct 42.6 MCV 89.7 MCH 29.5 MCHC 32.9 RDW 12.3 Plt Count 214 MPV 9.8 Immature Gran % (Auto) 0.2 Neut % (Auto) 73.2 H Lymph % (Auto) 15.2 L [place] % (Auto) 9.9 H Eos % (Auto) 1.1 Baso % (Auto) 0.4 Lymph # (Auto) 1.35 [place] # (Auto) 0.9 H Eos # (Auto) 0.1 Baso # (Auto) 0.0 Abs Immat Gran (auto) 0.02 Absolute Neuts (auto) 6.5 Absolute Nucleated RBC 0.000 Nucleated RBC % 0.0 PT 13.6 INR 1.0 APTT 29.2 Sodium Potassium Chloride Carbon Dioxide Anion Gap BUN Creatinine Estim Creat Clear Calc Estimated GFR Glucose Lactic Acid Calcium Magnesium Total Bilirubin AST ALT Alkaline Phosphatase Troponin I < 0.012 Total Protein Albumin Lipase Urine Color Urine Appearance Urine pH Ur Specific [place] Urine Protein Urine Glucose (UA) Urine Ketones Ur Blood (Man) Urine Nitrate Urine Bilirubin Urine Urobilinogen Leukocyte Esterase Rfl 10/13/24 14:29 WBC RBC Hgb Hct MCV MCH MCHC RDW Plt Count MPV Immature Gran % (Auto) Neut % (Auto) Lymph % (Auto) [place] % (Auto) Eos % (Auto) Baso % (Auto) Lymph # (Auto) [place] # (Auto) Eos # (Auto) Baso # (Auto) Abs Immat Gran (auto) Absolute Neuts (auto) Absolute Nucleated RBC Nucleated RBC % PT INR APTT Sodium 138 Potassium 4.7 Chloride 98 Carbon Dioxide 28 Anion Gap 12 BUN 26 H Creatinine 1.20 H Estim Creat Clear Calc 35 Estimated GFR 44 L Glucose 140 H Lactic Acid 1.5 Calcium 10.4 H Magnesium 2.0 Total Bilirubin 0.5 AST 31 ALT 27 Alkaline Phosphatase 77 Troponin I < 0.012 Total Protein 9.0 H Albumin 5.0 Lipase 66 Urine Color Yellow Urine Appearance Clear Urine pH 5.5 Ur Specific [place] 1.022 Urine Protein Negative Urine Glucose (UA) Negative Urine Ketones Negative Ur Blood (Man) Negative Urine Nitrate Negative Urine Bilirubin Negative Urine Urobilinogen 0.2 Leukocyte Esterase Rfl Negative Discharge Plan Discharge Attending physician on discharge: Gabe Kumar Discharging Clinician: Gabe Kumar Anticipated Discharge Date/Time: 10/14/24 14:31 Patient Disposition: Home, Self-Care Activity: as tolerated Diet: heart healthy Discharge Instructions: Take precautions to avoid falls. Rise slowly from a lying or sitting position. Pause before standing or walking. Contact your doctor or call 911 and come to the Emergency Room if you have any type of trauma, lightheadedness with standing or other worrisome symptoms. Avoid NSAIDs (ibuprofen, naproxen, Aleve). Tylenol is safe to take. New medication: Eliquis 5mg tablets -- Take 10mg (2 tablets) every 12 hours through the morning of October 20 THEN start 5mg (1 tablet) every 12 hours on October 20 starting with the evening dose Follow-up with your primary care provider in 1-2 weeks. Please call for appointment. Thank you for using [facility] for your health care needs. Patient Instructions: Antibiotic Form, Apixaban (By mouth) Patient Language: Georgian Stand Alone Forms: General Discharge Information Follow-up/Referrals: Jose James DO [Primary Care Provider] - Call for Appointment Discharge Medications: New Eliquis 5 mg Tablet 10 mg PO Q12HR Qty: 60 0RF Rx Instructions: Take 10mg (2 tablets) every 12 hours through the morning of October 20 THEN start 5mg (1 tablet) every 12 hours on October 20 with the evening dose Continued carvedilol 25 mg tablet 12.5 mg PO Q12H Rx Instructions: must administer with a meal/food spironolactone 25 mg tablet 12.5 mg PO BID Rx Instructions: take 1/2 of tablet daily atorvastatin 10 mg tablet 10 mg PO QHS acetaminophen [Tylenol Extra Strength] 500 mg tablet 500 mg PO Q6H PRN (Reason: fever or pain) Date of admission: 10/13/24 16:54 Primary Care Provider: Jose James Admitting Provider: Jayaraj,Alok Attending physician on admission: Alok Vela Condition: Stable Hospitalist MIPS Heart Failure (Exclusion) Patient has history of Heart Transplant or Left Ventricular Assistive Device?: No IF YES, STOP HERE Heart Failure (Qualifier) Patient has current or prior documentation of LVEF less than or equal to 40%, or mod/servere depressed LVSF?: No IF NO, STOP HERE
== END 2024-10-14 13:50 | disposition home or self-care (01) | DRG 176 ==
LOC: ANHED 16:38 → ANH3MED 10-14 01:52
PROVIDERS: Admitting Provider General Practice; Emergency Provider Emergency Medicine; PCP Internal Medicine; Visit Provider Internal Medicine
DX: I26.99 Other pulmonary embolism without acute cor pulmonale (principal); I10 Essential (primary) hypertension; M19.90 Unspecified osteoarthritis, unspecified site; M54.30 Sciatica, unspecified side; Z86.0101 Personal history of adenomatous and serrated colon polyps
CPT/HCPCS: 36415; 71045; 71275; 74177; 80053; 81003; 83605; 83690; 83735; 84484; 85025; 85610; 85730; 93005; 93970; 96360; 96361; 96375; 99285; A9270; C8929; J7030; Q9957; Q9967

== ENCOUNTER 2025-01-11 07:36 | Outpatient (CLI) | payer OTHER, SELFPAY ==
--- NOTE | ~2025-01-11 | XR_ITS ---
EXAM/PROCEDURE: XR chest 2V - 01/11/2025 8:39 CDT HISTORY: 74 years old Female with I26.94 - Multiple subsegmental thrombotic pulmonary embol... TECHNIQUE: Two view(s) of the chest. COMPARISON: None available. FINDINGS: LUNGS/ PLEURA: No focal consolidation. No appreciable pneumothorax or large pleural effusion. HEART/ MEDIASTINUM: Heart appears normal in size. BONES: No acute osseous abnormality. OTHER: Visualized upper abdomen is unremarkable. IMPRESSION: No acute process. Reviewed, dictated and finalized at location A. IMPRESSION: No acute process.
--- NOTE | 2025-01-11 09:27 | ECHO_ITS ---
Patient Info Name: dEna Lynn Age: 74 years : 1950 Gender: Female Ht: 67 in Wt: 160 lbs BSA: 1.86 m2 HR: 58 bpm BP: 128 / 74 mmHg Technical Quality: Good Exam Date: 01/11/2025 9:32 AM Patient Status: O Admit Date: 01/11/2025 Exam Type: CA echo doppler color flow Complete two-dimensional, color flow and Doppler transthoracic echocardiogram is performed. Staff Referring Physician: Edna Rich MD Svp Marketing: Patricia Joshi Attending Provider: Edna Rich MD Summary 1. Complete two-dimensional, color flow and Doppler transthoracic echocardiogram is performed. 2. There is normal biventricular size and systolic function. 3. There are no significant valvular abnormalities. 4. There is normal pulmonary artery pressures. Left Ventricle The left ventricle is normal in size and systolic function. The left ventricular ejection fraction is visually estimated to be 60-65%. Right Ventricle The right ventricle is normal in size and systolic function. Left Atria The left atrium is normal size. Right Atria The right atrium is normal size. Aortic Valve The aortic valve is trileaflet and sclerotic. There is no aortic stenosis. There is trace aortic regurgitation. Pulmonic Valve The pulmonic valve is not well visualized. There is no color Doppler evidence of pulmonic valve regurgitation. Mitral Valve The mitral valve is grossly normal. There is trace mitral regurgitation. Tricuspid Valve The tricuspid valve is normal. There is trace tricuspid valve regurgitation. Pulmonary Arteries There is normal pulmonary arterial pressures. Pericardium/Pleural There is trivial pericardial effusion. Inferior Vena Cava Normal inferior vena cava with >50% collapse upon inspiration consistent with normal right atrial pressure, 3 mmHg. Aorta The aortic root at the level of the sinus of Valsalva measures 2.7 cm in diameter. Left Ventricular Outflow Tract Name Value Normal LVOT 2D LVOT Diameter 2.0 cm LVOT Doppler LVOT Peak Velocity 104 cm/s LVOT Peak Gradient 4 mmHg LVOT Mean Gradient 2 mmHg LVOT VTI 25 cm LVOT Stroke Volume 75 ml LVOT CO 4.4 l/min LVOT CI 2.4 l/min/m2 Pulmonic Valve Name Value Normal RVOT Doppler RVOT Peak Velocity 48 cm/s RVOT Peak Gradient 1 mmHg PV Doppler PV Peak Velocity 66 cm/s PV Peak Gradient 2 mmHg Mitral Valve Name Value Normal MV Diastolic Function MV E Peak Velocity 77 cm/s MV A Peak Velocity 98 cm/s MV E/A 0.8 MV Decel Time (PW) 277 ms MV Annular TDI MV E/e' (Septal) 12.1 MV E/e' (Lateral) 9.2 MV E/e' (Average) 10.6 Tricuspid Valve Name Value Normal TV Regurgitation Doppler TR Peak Velocity 270 cm/s TR Peak Gradient 23 mmHg Estimated PAP/RSVP RA Pressure 3 mmHg <=5 PA Systolic Pressure 32 mmHg <36 RV Systolic Pressure 32 mmHg <36 Aortic Valve Name Value Normal AV Doppler AV Peak Velocity 110 cm/s AV Peak Gradient 5 mmHg AV Area (Cont Eq Robe) 2.9 cm2 AV DI (Robe) 0.94 AV Regurgitation 2D LVOT Area 3.0 cm2 Ventricles Name Value Normal LV Dimensions 2D/MM IVS Diastolic Thickness (2D) 0.9 cm 0.6-1.0 LVID Diastole (2D) 5.0 cm 3.8-5.2 LVIW Diastolic Thickness (2D) 0.8 cm 0.6-0.9 LVID Systole (2D) 3.2 cm 2.2-3.5 LVOT Diameter 2.0 cm LV Mass (2D Cubed) 146.69 g 67.00-162.00 LV Mass Index (2D Cubed) 79 g/m2 43-95 Relative Wall Thickness (2D) 0.32 <=0.42 LV Fractional Shortening/Ejection Fraction 2D/MM LV Fractional Shortening (2D) 36 % 27-45 LV EF (2D Teichholz) 66 % LV Diastolic Volume (4C MOD) 68 ml LV EF (4C MOD) 57 % LV Diastolic Volume (2C MOD) 78 ml LV EF (2C MOD) 66 % LV Diastolic Volume (BP MOD) 72 ml 46-106 LV Diastolic Volume Index (BP MOD) 39 ml/m2 29-61 LV Systolic Volume (BP MOD) 29 ml 14-42 LV Systolic Volume Index (BP MOD) 16 ml/m2 8-24 LV EF (BP MOD) 60 % 54-74 LV Diastolic Length (4C) 7.3 cm LV Systolic Length (4C) 6.5 cm LV Stroke Volume (4C MOD) 39 ml Atria Name Value Normal LA Dimensions LA Volume (4C A-L) 34 ml LA Volume (BP A-L) 42 ml RA Dimensions RA Systolic Major [place] Length (4C) 5.3 cm 2.2-2.8 RA Area (4C) 12.6 cm2 <=18.0 Report Signatures
--- NOTE | 2025-01-11 12:10 | WPDSIXMINUTE ---
Six Minute Walk Procedure Procedure Performed Pulmonary Stress Test (6 min walk) Six Minute Walk Six Minute Walk: This is a 6 minute walk test. The test was performed and interpreted in accordance with the 2014 ERS/ATS task force guidelines. Findings: The patient's resting room air oxygen saturation measured by pulse oximetry was 96%, the heart rate was 61 bpm, and the modified Rustam dyspnea score was 0. Patient ambulated for 365 meters and oxygen saturation remained 95 to 96%. At the end of the study the heart rate was 81 bpm and the modified Rustam dyspnea score was 0.5. The patient did not qualify for supplemental oxygen at rest or with ambulation. There are no prior studies for comparison.
--- NOTE | 2025-01-11 12:12 | P.PCNPFT_ITS ---
PFT Procedure Performed PFT Procedure Performed Spirometry with Pre/Post Bronchodilator Plethysmography (Lung Vol) Diffusing Cap (DLCO) Flow Vol Loop PFT Interpretation This is a pulmonary function test with pre and post-bronchodilator spirometry, plethysmography and diffusing capacity. The test was performed and results interpreted in accordance with the 2019 and 2005 ATS/ERS Task Force guidelines respectively using the Global Lung Function Initiative-2012 reference equations. Patient demonstrated good effort and cooperation. Reproducibility criteria were met. The quality of the pre bronchodilator spirometry maneuver was Grade A and post bronchodilator spirometry maneuver was Grade A. Findings: Spirometry: The contour the expiratory flow tracing demonstrates an early notch in 2 of 3 pre bronchodilator maneuvers and 3 of 3 post bronchodilator maneuvers. The contour the inspiratory flow tracing is normal. The pre bronchodilator FVC is 3.17 L, 108% predicted. The pre bronchodilator FEV1 is 2.36 L, 105% predicted. The pre bronchodilator FEV1: FVC ratio is 74%. The post bronchodilator FVC is 3.48 L, representing a 10% increase. The post bronchodilator FEV1 is 2.43 L, representing a 3% increase. The post bronchodilator FEV1 is 2.43 L, representing a 3% increase. The post bronchod ilator FEV1: FVC ratio is 70%. Plethysmography: The total lung capacity is 5.92 L, 108% predicted. The functional residual capacity is 4.39 L, 138% predicted. The residual volume is 2.51 L, 102% predicted. Diffusing capacity: The diffusing capacity unadjusted for hemoglobin and carboxyhemoglobin is 16.1, 76% predicted. The diffusing capacity adjusted for alveolar volume is 3.76, 93% predicted. Impression: There is a reproducible early notch in the expiratory flow tracing. This can be associated with a ball valve effect on flow from an obstructing tracheal abnormality. Clinical correlation is recommended. Otherwise, the spirometry is normal without evidence of an obstructive abnormality. There is no significant improvement after inhaling a single dose of albuterol. The lung volumes are normal. The diffusing capacity is normal. There are no prior studies for comparison
== END 2025-01-11 07:37 | disposition home or self-care (01) ==
PROVIDERS: PCP Internal Medicine; Visit Provider Internal Medicine Critical Care Medicine
DX: R07.9 Chest pain, unspecified (principal); I26.94 Multiple subsegmental thrombotic pulmonary emboli without acute cor pulmonale; R06.09 Other forms of dyspnea
CPT/HCPCS: 71046; 93306; 94060; 94618; 94726; 94729

== ENCOUNTER 2025-03-23 15:40 | Outpatient (CLI) | payer OTHER, SELFPAY ==
--- NOTE | ~2025-03-23 | MM_ITS ---
EXAMINATION: MM screening arun BI w cailin HISTORY: Screening TECHNIQUE: Craniocaudal and mediolateral oblique 3-D tomosynthesis images were obtained and synthetic 2-D images were generated. CAD analysis was submitted and interpreted. COMPARISON: Mammogram 02/18/2022 BREAST PARENCHYMAL COMPOSITION: The breasts are heterogeneously dense, which may obscure small masses. FINDINGS: There is no evidence of suspicious mass, calcification, or architectural distortion to suggest malignancy. There has been no suspicious interval change. IMPRESSION: 1. No mammographic evidence of malignancy. Recommend routine screening mammography in one year. BI-RADS Category 2: Benign finding(s) Reviewed, dictated and finalized at location Q. IMPRESSION: 1. No mammographic evidence of malignancy. Recommend routine screening mammogra phy in one year. BI-RADS Category 2: Benign finding(s)
--- OUTSIDE RECORDS SUMMARY | 2025-03-23 15:42 | XMS_ITS | Clinical Summary ---
Author Organization [facility] [address] Address [address] [place] [address] Care Team Providers Care Charge Operator Name Role Phone Marvin No MD Primary Care Provider [phone] Allergies Active Allergy Reactions Criticality Noted Date Comments Amlodipine Edema Medium 04/14/2018 Hydrochlorothiazide Other (See comments) Medium 2017 Dehydration, bleeding Lisinopril Cough Medium 04/14/2018 Medications vit R-C-lryqah-zinc-l utein 226-90-0.8-5 mg capsule Take by mouth Active carvediloL (COREG) 12.5 mg tablet TAKE 1 TABLET BY MOUTH TWICE A DAY WITH FOOD 180 tablet 2 08/03/2024 Active Eliquis 5 mg tablet Take 1 tablet (5 mg total) by mouth 2 (two) times a day 10/13/2024 Active spironolactone (ALDACTONE) 25 mg tabletIndications :Essential hypertension TAKE 1/2 TABLET BY MOUTH TWICE DAILY 90 tablet 3 12/08/2024 Active atorvastatin (LIPITOR) 10 mg tablet TAKE 1 TABLET BY MOUTH EVERY DAY 90 tablet 3 12/26/2024 Active Active Problems Problem Noted Date Diagnosed Date History of pulmonary embolus (PE) 11/28/2024 Left ventricular hypertrophy 08/09/2020 BLACK (dyspnea on exertion) 04/14/2018 Palpitations 03/09/2015 Overview (10/24/2016): Palpitations Hyperlipidemia LDL goal <70 03/09/2015 Overview (10/24/2016): HLD (hyperlipidemia) Hypertension 03/09/2015 Overview (10/24/2016): HTN (hypertension) Surgical History Surgery Date Site/Laterality Comments HYSTERECTOMY CATARACT EXTRACTION 2018 Medical History Medical History Date Comments Hypertension Hyperlipidemia Cataract Family History Medical History Relation Name Comments Coronary artery disease Father Maxx Almonte Kristin nary artery disease; Early Father Maxx Almonte Heart attack Father Maxx Almonte Myocardial infa rction; Heart disease Father Maxx Almonte Hyperlipidemia Father Maxx Almonte Hypertension Father Maxx Almonte Hypertension; Alzheimer's disease Mother Beth Almonte Alzhei sherita's disease; Memory loss Mother Beth Almonte Hypertension Sister Hypertension; Relation Name Status Comments Father Maxx Almonte (Age 84) Mother Beth Almonte Sister Social History Tobacco Use Types Packs/Day Years Used Date Smoking Tobacco: Never Smokeless Tobacco: Never Tobacco Cessation:Counseling Given: Not Answered Alcohol Use Standard Drinks/Week Comments No 0 (1 standard drink = 0.6 oz pur e alcohol) Comments Unknown Sex and Gender Information Value Date Recorded Sex Assigned at Not on file Legal Sex Female 6:53 AM LABORER OPERATOR Gender Identity Female 08/17/2021 5:50 PM LABORER OPERATOR Sexual Orientation Straight 08/17/2021 5: 50 PM LABORER OPERATOR Obstetrics History Last Filed Vital Signs Vital Sign Reading Time Taken Comments Blood Pressure 124/70 11/28/2024 11:11 AM CDT Pulse 55 11/28/2024 11:11 AM CDT Temperature - - Respiratory Rate 16 04/14/2018 2:06 PM CDT Oxygen Saturation 95% 11/28/2024 11:11 AM CDT Inhaled Oxygen Concentration - - Weight 73.5 kg (162 lb) 11/28/2024 11:11 AM CDT Height 170.2 cm (5' 7) 11/28/2024 11:11 AM CDT Body Mass Index 25.37 11/28/2024 11:11 AM CDT Plan of Treatment Health Maintenance Due Date Last Done Comments Depression Screening 1950 Fall Risk Assessment 1950 Hepatitis C Screening 1950 Osteoporosis Screening-Bone Density Scan 1950 DTaP/Tdap/Td Vaccine (1 - Tdap) 1959 Hepatitis B Screening 1966 Well Visit 65+ 2013 Zoster Vaccine (2 of 3) 10/13/2016 08/18/2016 Pneumococcal vaccine 65+ (2 of 2 - PCV20 or PCV21) 06/17/2017 06/17/2016 Influenza Vaccine (#1) 2025 4, 05/26/2019, 04/28/2018, Additional history exists Insurance [facility] Care Teams Charge Operator Relationship Specialty Start Date End Date Marvin No MD [address] [place] [address] PCP - General Internal Medicine 09/01/22
--- OUTSIDE RECORDS SUMMARY | 2025-03-23 15:42 | XMS_ITS | Clinical Summary ---
Author Organization [facility] Address [address] [place] [address] Care Team Providers Care Receiving Clerk Name Role Phone Jose James DO Primary Care Provider [phone] Allergies Active Allergy Reactions Criticality Noted Date [...] Comments Blood Pressure 174/93 07/10/2023 1:00 PM DIRECTOR OF MANUFACTURING OPERATIONS Pulse 74 07/10/2023 1:00 PM DIRECTOR OF MANUFACTURING OPERATIONS Temperature 36.4 C (97.6 F) 07/10/2023 1:00 PM DIRECTOR OF MANUFACTURING OPERATIONS Respiratory Rate 18 07/10/2023 1:00 PM DIRECTOR OF MANUFACTURING OPERATIONS Oxygen Saturation 95% 07/10/2023 1:00 PM DIRECTOR OF MANUFACTURING OPERATIONS Inhaled Oxygen Concentration - - Weight 71.9 kg (158 lb 8.2 oz) 07/10/2023 11:53 AM DIRECTOR OF MANUFACTURING OPERATIONS Height 170.2 cm (5' 7) 07/10/2023 11:53 AM DIRECTOR OF MANUFACTURING OPERATIONS Body Mass Index 24.83 07/10/2023 11:53 AM DIRECTOR OF MANUFACTURING OPERATIONS Plan of Treatment Health Maintenance Due Date Last Done Comments Hepatitis C 1968 DTaP, Tdap and Td Vaccines (1 - Tdap) 1967 Annual Medicare Wellness Visit 2013 Dexa Scan (General) 2013 Zoster Vaccines (2 of 3) 10/13/2016 08/18/2016 Pneumococcal Vaccine: 50+ Years (2 of 2 - PPSV23) 06/17/2017 06/17/2016 RSV Immunization or 60+ Years (1 - 1-dose 75+ series) 2023 COVID-19 Vaccine ( season) 2024 03/29/2022, 10/17/2021, 04/13/2021, Additional history exists Meningococcal B Vaccine Aged Out No l onger eligible based on patient's age to complete this topic Meningococcal Vaccine Aged Out No adam tre eligible based on patient's age to complete this topic RSV Immunizations Under 20 Months Aged Out No longer eligible based on patient's age to complete this topic Insurance [employer] Care Teams Receiving Clerk Relationship Specialty Start Date End Date Jose James DO [address] [place] [address] PCP - General INTERNAL MEDICINE 05/12/22
--- OUTSIDE RECORDS SUMMARY | 2025-03-23 15:42 | XMS_ITS | Encounter Summary ---
Author Organization [facility] Address [address] [place] [address] Care Team Providers Care Coke Still Cleaner Name Role Phone Buck Moore MD Primary Care Provider [phone] Jose James DO Primary Care Provider [phone] Marvin No MD Primary Care Provider [phone] Encounter Details Date Type Department Care Team (Late st Contact Info) Description 10/14/2017 Orders Only [facility] Health Information Management [address] [place] [address] Scanning, Provider Social History Tobacco Use Types Packs/Day Years Used Date Smoking Tobacco: Never Alcohol Use Standard Drinks/Week Comments No 0 (1 standard drink = 0.6 oz pur e alcohol) Comments Unknown Sex and Gender Information Value Date Recorded Sex Assigned at Not on file Legal Sex Female 6:53 AM TOP CAGER Gender Identity Female 08/17/2021 5:50 PM TOP CAGER Sexual Orientation Straight 08/17/2021 5: 50 PM TOP CAGER documented as of this encounter Plan of Treatment Not on file documented as of this encounter Procedures Procedure Name Priority Date/Time Associated Diagnosis Comments CARDIOLOGY DOCUMENT SCAN 10/14/2017 documented in this encounter Results * Cardiology Document Scan (10/14/2017) Anatomical Region Laterality Modality Other us Provider Scanning CV CARDIAC SERVICES PROCEDURES Final Result documented in this encounter Visit Diagnoses Not on filedocumented in this encounter Care Teams Coke Still Cleaner Relationship Specialty Start Date End Date Buck Moore MD [address] [place] [address] PCP - General 04/06/15 11/01/17 Jose James DO [address] [place] [address] PCP - General Internal Medicine 11/02/17 08/31/22 Marvin No MD [address] [place] [address] PCP - General Internal Medicine 09/01/22 documented as of this encounter
== END 2025-03-23 15:41 | disposition home or self-care (01) ==
LOC: ANHFOHIMG 15:41
PROVIDERS: PCP Internal Medicine; Visit Provider Internal Medicine
DX: Z12.31 Encounter for screening mammogram for malignant neoplasm of breast (principal)
CPT/HCPCS: 77063; 77067

== ENCOUNTER 2025-04-19 03:48 | Day surgery (SDC) | payer OTHER, SELFPAY ==
[2025-04-13 13:28] VITALS: BMI 25.0
--- NOTE | 2025-04-13 13:46 | PC.NURSE ---
Spoke with PATIENT regarding medication ELIQUIS. PATIENT verbalizes understanding that the last dose is to be taken on 04/15/2025 and the Endoscopist will instruct them when to restart after the procedure.
--- OUTSIDE RECORDS SUMMARY | 2025-04-19 03:51 | XMS_ITS | Clinical Summary ---
Author Organization [facility] [address] Address [address] [place] [address] Care Team Providers Care Fire Support Man Name Role Phone Marvin No MD Primary Care Provider [phone] Allergies Active Allergy Reactions Criticality Noted Date Comments Amlodipine Edema Medium 04/14/2018 Hydrochlorothiazide Other (See comments) Medium 2017 Dehydration, bleeding Lisinopril Cough Medium 04/14/2018 Medications vit R-C-mbxxpl-zinc-l utein 226-90-0.8-5 mg capsule Take by mouth [...] on file Legal Sex Female 6:53 AM SUPERVISOR VEGETABLE FARMING Gender Identity Female 08/17/2021 5:50 PM SUPERVISOR VEGETABLE FARMING Sexual Orientation Straight 08/17/2021 5: 50 PM SUPERVISOR VEGETABLE FARMING Obstetrics History Last Filed Vital Signs Vital [...] 4, 05/26/2019, 04/28/2018, Additional history exists Insurance [facility] Care Teams Fire Support Man Relationship Specialty Start Date End Date Marvin No MD [address] [place] [address] PCP - General Internal Medicine 09/01/22
--- OUTSIDE RECORDS SUMMARY | 2025-04-19 03:51 | XMS_ITS | Clinical Summary ---
Author Organization [facility] Address [address] [place] [address] Care Team Providers Care Videographer Name Role Phone Jose James DO Primary Care Provider [phone] Allergies Active Allergy Reactions Criticality Noted Date [...] Comments Blood Pressure 174/93 07/10/2023 1:00 PM URBAN PLANNING PROFESSOR Pulse 74 07/10/2023 1:00 PM URBAN PLANNING PROFESSOR Temperature 36.4 C (97.6 F) 07/10/2023 1:00 PM URBAN PLANNING PROFESSOR Respiratory Rate 18 07/10/2023 1:00 PM URBAN PLANNING PROFESSOR Oxygen Saturation 95% 07/10/2023 1:00 PM URBAN PLANNING PROFESSOR Inhaled Oxygen Concentration - - Weight 71.9 kg (158 lb 8.2 oz) 07/10/2023 11:53 AM URBAN PLANNING PROFESSOR Height 170.2 cm (5' 7) 07/10/2023 11:53 AM URBAN PLANNING PROFESSOR Body Mass Index 24.83 07/10/2023 11:53 AM URBAN PLANNING PROFESSOR Plan of Treatment Health Maintenance Due Date [...] series) 2023 COVID-19 Vaccine ( - season) 2025 03/29/2022, 10/17/2021, 04/13/2021, Additional history exists Meningococcal B Vaccine Aged Out No l onger eligible based on patient's age to complete this topic Meningococcal Vaccine Aged Out No adam tre eligible based on patient's age to complete this topic RSV Immunizations Under 20 Months Aged Out No longer eligible based on patient's age to complete this topic Insurance [employer] Care Teams Videographer Relationship Specialty Start Date End Date Jose James DO [address] [place] [address] PCP - General INTERNAL MEDICINE 05/12/22
--- OUTSIDE RECORDS SUMMARY | 2025-04-19 03:51 | XMS_ITS | Encounter Summary ---
Author Organization [facility] Address [address] [place] [address] Care Team Providers Care Maintenance And Engineering Manager Name Role Phone Buck Moore MD Primary Care Provider [phone] Jose Jmaes DO Primary Care Provider [phone] Marvin No MD Primary Care Provider [phone] Encounter Details Date Type Department Care Team (Late st Contact Info) Description 10/14/2017 Orders Only [facility] Health Information Management [address] [place] [address] Scanning, Provider Social History Tobacco Use Types Packs/Day Years Used Date Smoking Tobacco: Never Alcohol Use Standard Drinks/Week Comments No 0 (1 standard drink = 0.6 oz pur e alcohol) Comments Unknown Sex and Gender Information Value Date Recorded Sex Assigned at Not on file Legal Sex Female 6:53 AM SOURCER Gender Identity Female 08/17/2021 5:50 PM SOURCER Sexual Orientation Straight 08/17/2021 5: 50 PM SOURCER documented as of this encounter Plan of [...] on filedocumented in this encounter Care Teams Maintenance And Engineering Manager Relationship Specialty Start Date End Date Buck Moore MD PCP - General 04/06/15 11/01/17 Jose James DO PCP - General Internal Medicine 11/02/17 08/31/22 Marvin No MD [address] [address] PCP - General Internal Medicine 09/01/22 documented as of this encounter
[2025-04-19 07:42] VITALS: BP 138/72; PULSE 72; RESP 18; TEMP 36.1; O2SAT 97
[2025-04-19] MEDS: LACTATED RINGERS 1,000 ML 150 ML IV CONT (07:54)
--- NOTE | 2025-04-19 08:31 | WPDANESEPPF ---
Anes - Initial Pre Proc Eval Procedure: Operation Date: 04/19/25 09:00 Proposed Procedures p Screening Colonoscopy - Obinna Ordaz MD Date/Time: 04/19/25 08:31 Surgeon: Obinna Ordaz MD Pre Op Diagnosis: Personal history of colon polyps, unspecified Patient Data Age: 75 Gender: F Height: 1.7 m Weight: 72 kg Last Vital Signs Temp 36.1 C L 04/19/25 07:42 Pulse 72 04/19/25 07:42 Resp 18 04/19/25 07:42 BP 138/72 04/19/25 07:42 Pulse Ox 97 04/19/25 07:42 O2 Del Method Room Air 04/19/25 07:42 Allergies Allergy/AdvReac Type Severity Reaction Status Date / Time amlodipine AdvReac Intermediate swelling Verified 04/19/25 07:41 hydrochlorothiazide AdvReac Mild throat Verified 04/19/25 07:41 irritation lisinopril AdvReac Mild throat Verified 04/19/25 07:41 irritation Home Medications ?Medication ?Instructions ?Recorded ?Confirmed ?Type atorvastatin 10 mg tablet 10 mg PO QHS 02/10/23 04/13/25 History acetaminophen 500 mg tablet 500 mg PO Q6H PRN fever or pain 08/16/24 04/13/25 History (Tylenol Extra Strength) spironolactone 25 mg tablet 12.5 mg PO BID 08/16/24 04/13/25 History carvedilol 12.5 mg tablet 12.5 mg PO BID 10/24/24 04/13/25 History apixaban 5 mg tablet (Eliquis) 5 mg PO Q12HR #60 tabs 11/16/24 04/19/25 Rx apple cider vinegar 250 mg mg PO 02/13/25 02/13/25 History chewable tablet coQ10 (ubiquinol) 100 mg capsule 200 mg PO DAILY 02/13/25 04/13/25 History (Qunol Andry CoQ10) vit A 300 mcg-C 200 mg-E 27 1 tablet PO DAILY 04/13/25 04/13/25 History mg-lutein 2 mg and minerals tablet (Vision Formula (with lutein)) Patient hx anesthesia problems: none Family hx anesthesia problems: none Results Review: All pre-operative results and documents have been reviewed as part of the pre-operative evaluation. [facility] Past Medical History Medical History Hyperlipidemia, unspecified Hypertension Arthritis History of sciatica Ruptured disc, cervical (~1985) Hx of colonic polyps Postmenopause Surgical History Surgical History H/O: hysterectomy (~1976) History of eye surgery July 2020 with correction in March 2021 Family History Family History Father Family history of diabetes mellitus in first degree relative Colon polyp Patient's father is Acute myocardial infarction Hypertension Heart disease Diabetes mellitus Mother Family history of Alzheimer's disease Sibling Hypertension Other Family history of allergic disorder Family history of cardiovascular disease Social History Social History Smoking status: Never smoker Second hand tobacco smoke exposure: No Alcohol intake: never Substance use: never Substance use type: does not use Do You Feel Safe in your Home?: Yes Lack of Transportation: No Lack of Food: Never True Current Housing: I Have Housing Concerned About Future Housing: No Difficulty Paying Gas/Electric Bills: No Difficulty Paying for Meds: No Currently Unemployed: No Education: Associate Degree Difficulty w/ Childcare or Family Care: No Living arrangements: with family Gender identity (if verbalized by the patient): Female Spiritual care concerns: No Anes - Eval Final PreProcedure Day of Procedure 04/19/25 08:31 Patient weight: normal Heart: regular rate and rhythm Lungs: clear to auscultation Airway: Mallampati scale class II Neurological: alert and oriented Last oral intake: >/= 8 hours ASA classification: II Emergent: no Anesthetic plan: proceed Anesthesia type and monitoring: general GIVS and standard monitoring Results Review: All pre-operative results and documents have been reviewed as part of the pre-operative evaluation. Informed Consent: The patient's anesthetic plan and its attendant risks and benefits were discussed with the patient/family/POA. Questions were solicited and answers provided to the satisfaction of the patient/family/POA.
--- NOTE | 2025-04-19 09:02 | PM.IMHP ---
H&P: HPI History of Present Illness Date/Time: 04/19/25 09:02 Chief Complaint: Screening colonoscopy Narrative: This is the patient's 2nd colonoscopy, she had a previous colonoscopy 10 years ago.. There are no GI symptoms and there is no family history of colorectal cancer. Of note, she had a recent pulmonary embolus, and he was recommended but she had an investigation for underlying neoplastic etiology Review of Systems Review of Systems: All systems reviewed & are unremarkable except as noted in HPI and below PMFSH Past Medical History Medical History Hyperlipidemia, unspecified Hypertension Arthritis History of sciatica Ruptured disc, cervical (~1985) Hx of colonic polyps Postmenopause Surgical History Surgical History H/O: hysterectomy (~1976) History of eye surgery July 2020 with correction in March 2021 Family History Family History Father Family history of diabetes mellitus in first degree relative Colon polyp Patient's father is Acute myocardial infarction Hypertension Heart disease Diabetes mellitus Mother Family history of Alzheimer's disease Sibling Hypertension Other Family history of allergic disorder Family history of cardiovascular disease Social History Social History Smoking status: Never smoker Second hand tobacco smoke exposure: No Alcohol intake: never Substance use: never Substance use type: does not use Do You Feel Safe in your Home?: Yes Lack of Transportation: No Lack of Food: Never True Current Housing: I Have Housing Concerned About Future Housing: No Difficulty Paying Gas/Electric Bills: No Difficulty Paying for Meds: No Currently Unemployed: No Education: Associate Degree Difficulty w/ Childcare or Family Care: No Living arrangements: with family Gender identity (if verbalized by the patient): Female Spiritual care concerns: No Meds Home Medications and Allergies Home Medications ?Medication ?Instructions ?Recorded ?Confirmed ?Type atorvastatin 10 mg tablet 10 mg PO QHS 02/10/23 04/13/25 History acetaminophen 500 mg tablet 500 mg PO Q6H PRN fever or pain 08/16/24 04/13/25 History (Tylenol Extra Strength) spironolactone 25 mg tablet 12.5 mg PO BID 08/16/24 04/13/25 History carvedilol 12.5 mg tablet 12.5 mg PO BID 10/24/24 04/13/25 History apixaban 5 mg tablet (Eliquis) 5 mg PO Q12HR #60 tabs 11/16/24 04/19/25 Rx apple cider vinegar 250 mg mg PO 02/13/25 02/13/25 History chewable tablet coQ10 (ubiquinol) 100 mg capsule 200 mg PO DAILY 02/13/25 04/13/25 History (Qunol Andry CoQ10) vit A 300 mcg-C 200 mg-E 27 1 tablet PO DAILY 04/13/25 04/13/25 History mg-lutein 2 mg and minerals tablet (Vision Formula (with lutein)) Allergies Allergy/AdvReac Type Severity Reaction Status Date / Time amlodipine AdvReac Intermediate swelling Verified 04/19/25 07:41 hydrochlorothiazide AdvReac Mild throat Verified 04/19/25 07:41 irritation lisinopril AdvReac Mild throat Verified 04/19/25 07:41 irritation Vital Signs Vital Signs - 24 hr 04/19/25 07:42 Temperature 97 F L Pulse Rate 72 Respiratory Rate 18 Blood Pressure 138/72 Pulse Oximetry 97 Oxygen Delivery Room Air Exam Const: General: cooperative and healthy appearing Resp: Effort & Inspection: normal respiratory effort and able to speak in complete sentences Auscultation: clear to auscultation bilaterally Cardio: Rate: regular rate Rhythm: regular rhythm GI: Inspection: normal to inspection GI Palp: No No hepatosplenomegaly present Auscultation: normal bowel sounds Rectal Exam: deferred Skin: General skin exam: normal color Psych: Appearance: grossly normal Mental Status: mental status grossly normal Assessment and Plan Assessment and plan (1) Pulmonary embolism: Qualifiers: Pulmonary embolism type: multiple subsegmental (without acute cor pulmonale) Qualified Code(s): I26.94 - Multiple subsegmental thrombotic pulmonary emboli without acute cor pulmonale Code(s): I26.99 - Other pulmonary embolism without acute cor pulmonale Status: Acute Assessment and Plan: The patient is deemed a good candidate for the procedure. Consent signed. Will proceed.
--- NOTE | 2025-04-19 09:33 | S_PTH ---
PATIENT: Edna Lynn LOC: [facility] U#:[id number] AGE/SX: 75/F ROOM: RE04/19/[address]: Obinna Ordaz MD : 1950 BED: DIS: 04/19/2025 SPEC #: [id number] RECD: 04/19/25 11:24 STATUS: JIM REQ #: [id number] JOSUE: 04/19/25 09:[address]: Obinna Ordaz DEPT: [facility] Surgical RECD BY: Sandy Isidro ENTERED: 04/19/25 11:25 SP TYPE: Surgical OTHR DR: Jose James DO Tissues: A - Colon Polypectomy Procedures: Hematoxylin and Eosin Stain Gross and Microscopic Level 4
[2025-04-19 09:37] VITALS: BP 97/56; PULSE 62; RESP 18; O2SAT 96
[2025-04-19 09:47] VITALS: BP 104/61; PULSE 65; RESP 18; O2SAT 100
[2025-04-19 09:57] VITALS: BP 119/69; PULSE 67; RESP 18; O2SAT 97
== END 2025-04-19 10:15 | disposition home or self-care (01) ==
PROVIDERS: PCP Internal Medicine; Referring Provider Internal Medicine; Visit Provider Internal Medicine Gastroenterology
PROC: 0DJD8ZZ Inspection of Lower Intestinal Tract, Via Natural or Artificial Opening Endoscopic (ICD-10-PCS; CPT 45378; principal; 2025-04-19 09:00)
DX: Z12.11 Encounter for screening for malignant neoplasm of colon (principal); D12.2 Benign neoplasm of ascending colon; K64.8 Other hemorrhoids; K57.30 Diverticulosis of large intestine without perforation or abscess without bleeding; E78.5 Hyperlipidemia, unspecified; I10 Essential (primary) hypertension; M19.90 Unspecified osteoarthritis, unspecified site; Z79.01 Long term (current) use of anticoagulants; Z98.890 Other specified postprocedural states; Z86.711 Personal history of pulmonary embolism; Z83.719 Family history of colon polyps, unspecified; Z82.49 Family history of ischemic heart disease and other diseases of the circulatory system
CPT/HCPCS: 45385; 88305; J2003; J2704; J7120

== ENCOUNTER 2025-07-03 12:26 | Outpatient (CLI) | payer OTHER, SELFPAY ==
--- NOTE | ~2025-07-03 | CT_ITS ---
EXAMINATION: CTA chest PE protocol DATE: 07/03/2025 13:06 INDICATION: Rule out PE TECHNIQUE: Computed tomography angiography (CTA) of the chest was performed with 100 mL Omnipaque-350 intravenous contrast timed to evaluate the pulmonary arteries. Coronal maximum intensity projection 3D-reconstructions were created by the technologist. The dose-length product was 229.49 mGy-cm. COMPARISON: None. FINDINGS: No pulmonary emboli or thoracic aortic aneurysm/dissection. Heart size normal. Minimal dependent atelectatic appearing changes; lungs are otherwise clear. No pericardial effusion or bulky lymphadenopathy. Central large airways patent. Degenerative changes throughout the bones. No acute process seen in the visualized portions of the upper abdomen or extrathoracic soft tissues. IMPRESSION: No pulmonary emboli or gross acute intrathoracic process. Reviewed, dictated and finalized at location A. [employer]
== END 2025-07-03 12:27 | disposition home or self-care (01) ==
PROVIDERS: PCP Internal Medicine; Visit Provider Internal Medicine Cardiovascular Disease
DX: R07.81 Pleurodynia (principal); Z86.711 Personal history of pulmonary embolism
CPT/HCPCS: 71275; Q9967